=== PATIENT | female | born 1955 | race Caucasian/White ===

== ENCOUNTER → 2016-07-05 | Outpatient (CLI) | payer MEDICAID ==
[2016-07-05 09:26] LABS: Basophils % (A) 1 %; CH 30.3; CHCM 32.7; Eosinophils # (A) 0.1 k/uL (0-0.7); Eosinophils % (A) 2 %; HCT 43.8 % (34.0-46.0); HDW 2.63; HGB 14.1 gm/dL (11.4-16.0); Luc # (Auto) 0.09; Luc % (Auto) 2; Lymphocytes # (A) 1.3 k/uL (1.0-4.8); Lymphocytes % (A) 25 %; MCHC 32.2 g/dL (31.0-37.0); MCV 93.3 fL (80.0-100.0); Mean Platelet Volume 8.5; Monocytes # (A) 0.4 k/uL (0-1.0); Monocytes % (A) 7 %; Neutrophils # (A) 3.2 k/uL (1.3-7.7); Neutrophils % (A) 64 %; RBC 4.69 m/uL (3.80-5.40); RDW 12.9 % (11.5-15.5); WBC 5.1 k/uL (3.8-10.6); WBC (Perox) 4.86
[2016-07-05 12:17] LABS: ALT 42 U/L (9-52); AST 28 U/L (14-36); Alkaline Phosphatase 61 U/L (38-126); Anion Gap 12 mmol/L; Blood Urea Nitrogen 15 mg/dL (7-17); Calcium 9.5 mg/dL (8.4-10.2); Carbon Dioxide 27 mmol/L (22-30); Chloride 102 mmol/L (98-107); Cholesterol 225 mg/dL (<200); Glucose 102 mg/dL (74-99); HDL Cholesterol 70 mg/dL (40-60); Non-African American GFR(MDRD) >60 (>60 ml/min/1.73 sqM); Potassium 4.4 mmol/L (3.5-5.1); Sodium 141 mmol/L (137-145); Total Bilirubin 0.9 mg/dL (0.2-1.3); Total Protein 7.9 g/dL (6.3-8.2); Triglycerides 74 mg/dL (<150)
[2016-07-05 13:09] LABS: Hepatitis C Virus IgG Index 0.03
[2016-07-05 13:23] LABS: Hepatitis C Virus IgG Ab Negative (Negative)
== END | disposition home or self-care (01) ==
LOC: LABWHC1 06:39
PROVIDERS: ATTEND Family Medicine
DX: E03.9 Hypothyroidism, unspecified (principal); E78.5 Hyperlipidemia, unspecified; E83.52 Hypercalcemia; Z20.9 Contact with and (suspected) exposure to unspecified communicable disease
CPT/HCPCS: 36415; 80053; 80061; 82330; 83970; 84439; 84443; 84481; 85025; 86803

== ENCOUNTER → 2016-07-13 | Outpatient (CLI) | payer MEDICAID ==
--- NOTE | 2016-07-14 10:59 | BD ---
EXAMINATION TYPE: MG DEXA axial skeleton. DATE OF EXAM: 07/13/2016 3:56 PM COMPARISON: 08.26.2014 CLINICAL HISTORY: Z78.0 ASYMPTOMATIC MENOPAUSAL STATE Height: 62 Weight: 200 FRAX RISK QUESTIONS: Alcohol (3 or more units per day): NO Family History (Parent hip fracture): NO Glucocorticoids (More than 3mos): YES (Ex: prednisone, prednisolone, methylprednisolone, dexamethasone, and hydrocortisone). History of Fracture in Adulthood: NO Secondary Osteoporosis: 1. Type 1 Diabetes: NO 2. Hyperthyroidism: NO 3. Menopause before 45: NO 4. Malnutrition: NO 5. Chronic liver disease: NO Rheumatoid Arthritis: NO Current Tobacco Use: NO RISK FACTORS HISTORY OF: Surgery to Spine TO CERVICAL SPINE, FUSION When: 2000 Family History of Osteoporosis: NO Drink Alcohol: RARE Active: YES Diet low in dairy products/other sources of calcium: NO Postmenopausal woman: YES AT 48 YRS OLD Adrenal Insufficiency: NO MEDICATIONS: Prednisone or other steroids: ASTHMA INHALERS, How Long: FOR YRS Thyroid Medications: YES, SYNTHROID How Lon YRS Additional Medications: CORTICO STEROID INHALER AND RESCUE INHALER, VIT D, Additional History: ASTHMA, EXAM MEASUREMENTS: Bone mineral densitometry was performed using the [employer] System. Bone mineral density as measured about the Lumbar spine is: ----- L1-L4(G/cm2): 1.495 T Score Values are as follows: ----- L1: 2.4 ----- L2: 2.0 ----- L3: 2.8 ----- L4: 3.1 ----- L1-L4: 2.6 Bone mineral density has: Increased 3.7% since study of: 08.26.2014 Bone mineral density about the R hip (g/cm2): 1.134 Bone mineral density about the L hip (g/cm2): 1.166 T Score values are as follows: -----R Neck: -0.2 -----L Neck: 0.2 -----R Intertrochanter: 0.3 -----L Intertrochanter: 0.6 Bone mineral density has: Increased 1.3% since study of: 08.26.2014 FRAX %'S: 5.9% FOR MAJOR OSTEOPOROTIC FX AND 0.2% FOR HIP FX: PROBABILITY OF FX IN 10 YRS TI ME IMPRESSION: Normal (Values between +1 and -1 indicate normal bone mass FOR BOTH SCANS....BOTH HIPS AND LUMBAR SPINE) NOTE: T-SCORE=SD OF THE YOUNG ADULT MEAN.
--- NOTE | 2016-07-17 09:11 | MM ---
Reason for exam: screening (asymptomatic). Last mammogram was performed 1 year and 11 months ago. History: Patient is postmenopausal. Family history of breast cancer in aunt. Benign stereotactic core biopsy of the right breast, September 16, 2001. Excisional biopsy of the left breast, 2000. Cyst aspiration of the right breast, 1999. Physical Findings: A clinical breast exam by your physician is recommended on an annual basis and results should be correlated with mammographic findings. MG 3D Screening Mammo W/Cad Bilateral CC and MLO view(s) were taken. Prior study comparison: August 26, 2014, bilateral MG screening mammo w CAD. May 24, 2012, bilateral digital screening mammo w/CAD. There are scattered fibroglandular densities. Finding: There are typically benign coarse calcifications in the right breast. Previous mammotome biopsy in the right breast. There is a chronic nodularity in the left breast. No significant changes in finding since August 26, 2014 and May 24, 2012. ASSESSMENT: Benign, BI-RAD 2 RECOMMENDATION: Routine screening mammogram of both breasts in 1 year.
== END ==
LOC: RADMAMWWP 15:16
PROVIDERS: ATTEND Family Medicine
DX: Z12.31 Encounter for screening mammogram for malignant neoplasm of breast (principal); Z78.0 Asymptomatic menopausal state
CPT/HCPCS: 77080; 77063; G0202

== ENCOUNTER → 2016-09-14 | Outpatient (CLI) | payer MEDICAID | END | disposition home or self-care (01) | LOC: LABWHC1 06:42 | PROVIDERS: ATTEND Family Medicine | DX: E03.9 Hypothyroidism, unspecified (principal) | CPT/HCPCS: 36415; 84439; 84443; 84481 ==

== ENCOUNTER → 2017-01-29 | Outpatient (CLI) | payer MEDICAID ==
--- NOTE | 2017-01-29 11:29 | XR ---
EXAMINATION TYPE: XR chest 2V DATE OF EXAM: 01/29/2017 COMPARISON: 10/06/2015 HISTORY: 61-year-old female shortness of breath, acute bronchitis TECHNIQUE: Frontal and lateral views FINDINGS: The cardiomediastinal silhouette, aorta, and pulmonary vasculature are within normal limits. Strandy atelectasis in the lower lungs. Otherwise, lungs and pleural spaces are clear. IMPRESSION: No acute cardiopulmonary process.
== END ==
LOC: RADXRMAIN 10:13
PROVIDERS: ATTEND Family Medicine
DX: J20.9 Acute bronchitis, unspecified (principal)
CPT/HCPCS: 71020

== ENCOUNTER → 2017-07-30 | Outpatient (CLI) | payer MEDICAID ==
[2017-07-30 07:39] LABS: Basophils % (A) 1 %; Eosinophils # (A) 0.1 k/uL (0-0.7); Eosinophils % (A) 2 %; HCT 43.4 % (34.0-46.0); HGB 13.9 gm/dL (11.4-16.0); Lymphocytes # (A) 1.6 k/uL (1.0-4.8); Lymphocytes % (A) 34 %; MCH 29.1 pg (25.0-35.0); MCV 90.9 fL (80.0-100.0); Mean Platelet Volume 7.5; Monocytes # (A) 0.3 k/uL (0-1.0); Monocytes % (A) 6 %; Neutrophils # (A) 2.6 k/uL (1.3-7.7); Neutrophils % (A) 56 %; Platelet Count 235 k/uL (150-450); RBC 4.78 m/uL (3.80-5.40); RDW 12.5 % (11.5-15.5); WBC 4.7 k/uL (3.8-10.6)
[2017-07-30 09:54] LABS: ALT 37 U/L (9-52); AST 33 U/L (14-36); Albumin 4.4 g/dL (3.5-5.0); Alkaline Phosphatase 55 U/L (38-126); Anion Gap 9 mmol/L; Blood Urea Nitrogen 14 mg/dL (7-17); Calcium 9.7 mg/dL (8.4-10.2); Carbon Dioxide 29 mmol/L (22-30); Chloride 104 mmol/L (98-107); Cholesterol 207 mg/dL (<200); Glucose 106 mg/dL (74-99); HDL Cholesterol 61 mg/dL (40-60); LDL Cholesterol,Calculated 131 mg/dL (0-99); Potassium 4.2 mmol/L (3.5-5.1); Sodium 142 mmol/L (137-145); Total Bilirubin 0.7 mg/dL (0.2-1.3); Total Protein 7.6 g/dL (6.3-8.2); Triglycerides 76 mg/dL (<150)
[2017-07-30 10:09] LABS: T4, Free (Free Thyroxine) 1.82 ng/dL (0.78-2.19)
== END | disposition home or self-care (01) ==
LOC: LABWHC1 06:56
PROVIDERS: ATTEND Family Medicine
DX: E03.9 Hypothyroidism, unspecified (principal)
CPT/HCPCS: 36415; 80053; 80061; 84439; 84443; 84481; 85025

== ENCOUNTER → 2017-08-07 | Outpatient (CLI) | payer MEDICAID ==
[2017-08-07 08:07] VITALS: BP 131/73; PULSE 81; TEMP 97.2; BMI 33.1
--- NOTE | 2017-08-07 08:41 | P.HPOB ---
History of Present Illness H&P Date: 08/07/17 Chief Complaint: The patient is here for her routine gynecologic exam and mammogram. This is a 62-year-old with an LMP of 2002. The patient is without gynecologic complaints and denies any postmenopausal bleeding. The patient states is been about 2 years since her last pelvic exam. Review of Systems The patient states she has lost about 25 pounds over the last year with diet and exercise. She denies respiratory, cardiac, and G.I. problems. Past Medical History Past Medical History: Asthma, COPD, Thyroid Disorder (Hypothyroid) Additional Past Medical History / Comment(s): sully 08/07/17, bone density 2016, colonoscopy 2014 History of Any Multi-Drug Resistant Organisms: None Reported Additional Past Surgical History / Comment(s): Tonsillectomy age 58, breast biopsy 2004, exploratory laprarotomy with ovarian cystectomy and appendectomy 1971, D&C x3 1969, colonoscopy 2014 (3rd). 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 - Past Family History Father Family Medical History: Cancer (Bowel cancer.) Mother Family Medical History: Dementia Additional Family Medical History / Comment(s): Maternal aunt had breast cancer. Medications and Allergies Home Medications and Allergies Comment(s): Additional medications include Advair inhaler b.i.d. Ventolin inhaler PRN. Home Medications Medication Instructions Recorded Confirmed Type Levothyroxine Sodium [Synthroid] 125 mcg PO DAILY 04/27/15 04/28/15 History Meclizine [Antivert] 25 mg PO DIRECTED PRN 04/27/15 04/28/15 History Allergies Allergy/AdvReac Type Severity Reaction Status Date / Time erythromycin base Allergy Nausea & Verified 08/07/17 08:11 Vomiting Penicillins Allergy Swelling Verified 08/07/17 08:11 Exam - Vital Signs Vital signs: Vital Signs Temp Pulse BP 08/07/17 08:04 97.2 F L 81 131/73 Intake and Output 08/06/17 08/07/17 08/07/17 22:59 06:59 14:59 Other: Weight 84.822 kg Height 5'3" BMI 33.1. This is a well-developed well-nourished white female who is alert and oriented times 3 in no acute distress. HEENT: Within normal limits. NECK: Supple without mass or thyromegaly. CHEST AND LUNGS: Clear to auscultation. HEART: Regular rate and rhythm. BREASTS: Are without mass or discharge. AXILLARY EXAM: Negative for adenopathy. BACK: Negative for CVA tenderness. ABDOMEN: Soft, nontender, without palpable masses. PELVIC EXAM: Normal external genitalia with mild atrophy. Cervix and vagina appear normal with mild atrophy. There is no unusual discharge. There is no evidence of prolapse. The uterus is midposition, nongravid size and nontender. There are no palpable adnexal masses or tenderness. RECTAL EXAM: rectovaginal exam is negative for mass or tenderness and is negative for occult blood. EXTREMITIES: Nontender. IMPRESSION: 1. 62-year-old menopausal female with normal gynecologic exam. PLAN: 1. Pap smear was performed. 2. Self breast examination was discussed. 3. Screening mammogram will be done today. 4. Bone density testing on 07/13/16 was normal. Will plan on repeating this in approximately 2023. 5. Osteoporosis prevention was discussed. 6. She will return in one year.
--- NOTE | 2017-08-08 08:34 | MM ---
Reason for exam: screening (asymptomatic). Last mammogram was performed 1 year and 1 month ago. History: Patient is postmenopausal. Family history of breast cancer in aunt. Benign stereotactic core biopsy of the right breast, September 16, 2001. Excisional biopsy of the left breast, 2000. Cyst aspiration of the right breast, 1999. Physical Findings: A clinical breast exam by your physician is recommended on an annual basis and results should be correlated with mammographic findings. MG 3D Screening Mammo W/Cad Bilateral CC and MLO view(s) were taken. Prior study comparison: July 13, 2016, bilateral MG 3d screening mammo w/cad. August 26, 2014, bilateral MG screening mammo w CAD. The breast tissue is heterogeneously dense. This may lower the sensitivity of mammography. Stable benign calcifications. There is chronic nodularity bilaterally. There is no dominant lesion. No significant changes when compared with prior studies. ASSESSMENT: Benign, BI-RAD 2 RECOMMENDATION: Routine screening mammogram of both breasts in 1 year.
== END | disposition home or self-care (01) ==
LOC: WWCWWP 07:39
PROVIDERS: ATTEND Obstetrics & Gynecology
DX: Z12.31 Encounter for screening mammogram for malignant neoplasm of breast (principal)
CPT/HCPCS: 77063; 77067

== ENCOUNTER → 2018-02-08 | Outpatient (CLI) | payer MEDICAID ==
[2018-02-08 07:27] LABS: Basophils % (A) 1 %; Eosinophils # (A) 0.1 k/uL (0-0.7); Eosinophils % (A) 2 %; HCT 44.6 % (34.0-46.0); HGB 14.5 gm/dL (11.4-16.0); Lymphocytes # (A) 1.6 k/uL (1.0-4.8); Lymphocytes % (A) 33 %; MCH 30.1 pg (25.0-35.0); MCHC 32.5 g/dL (31.0-37.0); MCV 92.5 fL (80.0-100.0); Mean Platelet Volume 6.9; Monocytes # (A) 0.3 k/uL (0-1.0); Monocytes % (A) 5 %; Neutrophils # (A) 2.8 k/uL (1.3-7.7); Neutrophils % (A) 58 %; Platelet Count 244 k/uL (150-450); RBC 4.82 m/uL (3.80-5.40); RDW 12.5 % (11.5-15.5); WBC 4.8 k/uL (3.8-10.6)
[2018-02-08 10:04] LABS: ALT 34 U/L (9-52); AST 33 U/L (14-36); Albumin 4.6 g/dL (3.5-5.0); Alkaline Phosphatase 54 U/L (38-126); Anion Gap 7 mmol/L; Blood Urea Nitrogen 17 mg/dL (7-17); Calcium 9.6 mg/dL (8.4-10.2); Carbon Dioxide 28 mmol/L (22-30); Chloride 104 mmol/L (98-107); Cholesterol 217 mg/dL (<200); Glucose 99 mg/dL (74-99); HDL Cholesterol 68 mg/dL (40-60); LDL Cholesterol,Calculated 134 mg/dL (0-99); Potassium 4.6 mmol/L (3.5-5.1); Sodium 139 mmol/L (137-145); Total Bilirubin 0.8 mg/dL (0.2-1.3); Total Protein 7.9 g/dL (6.3-8.2); Triglycerides 76 mg/dL (<150)
[2018-02-08 10:19] LABS: T4, Free (Free Thyroxine) 1.45 ng/dL (0.78-2.19)
[2018-02-08 15:08] LABS: Hemoglobin A1C 5.6 % (4.0-6.0)
== END ==
LOC: LABWHC1 06:45
PROVIDERS: ATTEND Family Medicine
DX: E03.9 Hypothyroidism, unspecified (principal); E78.5 Hyperlipidemia, unspecified; R73.9 Hyperglycemia, unspecified
CPT/HCPCS: 36415; 80053; 80061; 83036; 84439; 84443; 84481; 85025

== ENCOUNTER → 2018-07-11 | Outpatient (CLI) | payer MEDICAID | END | disposition home or self-care (01) | LOC: LABWHC1 06:56 | PROVIDERS: ATTEND Orthopaedic Surgery Orthopaedic Surgery of the Spine | DX: M50.121 Cervical disc disorder at C4-C5 level with radiculopathy (principal); R20.2 Paresthesia of skin; E66.9 Obesity, unspecified; M50.021 Cervical disc disorder at C4-C5 level with myelopathy; Z98.1 Arthrodesis status; R26.81 Unsteadiness on feet; M25.78 Osteophyte, vertebrae | CPT/HCPCS: 36415; 82565; 84520 ==

== ENCOUNTER → 2018-07-12 | Outpatient (CLI) | payer MEDICAID ==
--- NOTE | 2018-07-12 17:35 | MR ---
EXAMINATION TYPE: MR cervical spine wo/w con DATE OF EXAM: 07/12/2018 COMPARISON: None HISTORY: Cervicalgia / Radiculopathy, cervical CONTRAST: Performed utilizing 5.5 mL intravenous Gadavist gadolinium contrast. TECHNIQUE: Multiplanar multiecho imaging on a 3.0 Aleida magnet is performed through the cervical spin e. FINDINGS: The craniovertebral junction is normal. Vertebral body alignment is normal. There is an anterior cervical fusion present C5-6. C7-T1: No focal disc herniation or significant disc bulge is evident. No spinal canal stenosis or n eural foraminal stenosis is present. C6-7: No focal disc herniation or significant disc bulge is evident. No spinal canal stenosis or delaney ral foraminal stenosis is present. C5-6: No focal disc herniation or significant disc bulge is evident. No spinal canal stenosis or delaney ral foraminal stenosis is present. C4-5: No focal disc herniation or significant disc bulge is evident. No spinal canal stenosis or delaney ral foraminal stenosis is present. C3-4: There is a right paracentral focal bulge with moderate anterior thecal sac compression. This valentin s cord contact. No cord deformity is evident. No spinal canal stenosis or neural foraminal stenosis i s present.. C2-3: No focal disc herniation or significant disc bulge is evident. No spinal canal stenosis or delaney ral foraminal stenosis is present. IMPRESSIONS: 1. Right paracentral focal disc bulge with moderate anterior thecal sac compression and cord contact C3-4 level. No cord deformity or spinal canal stenosis is present. 2. Postsurgical changes from anterior cervical fusion.
== END | disposition home or self-care (01) ==
LOC: RADMRIMAIN 12:14
PROVIDERS: ATTEND Orthopaedic Surgery Orthopaedic Surgery of the Spine
DX: M50.11 Cervical disc disorder with radiculopathy, high cervical region (principal); M50.01 Cervical disc disorder with myelopathy, high cervical region; G95.29 Other cord compression; E66.9 Obesity, unspecified; Z98.1 Arthrodesis status
CPT/HCPCS: 72156; A9585

== ENCOUNTER → 2018-08-19 | Outpatient (CLI) | payer MEDICAID ==
[2018-08-19 08:23] LABS: Basophils % (A) 1 %; Eosinophils # (A) 0.1 k/uL (0-0.7); Eosinophils % (A) 2 %; HCT 43.5 % (34.0-46.0); HGB 13.9 gm/dL (11.4-16.0); Lymphocytes # (A) 1.7 k/uL (1.0-4.8); Lymphocytes % (A) 29 %; MCH 29.2 pg (25.0-35.0); MCHC 32.1 g/dL (31.0-37.0); Mean Platelet Volume 7.2; Monocytes # (A) 0.3 k/uL (0-1.0); Monocytes % (A) 6 %; Neutrophils # (A) 3.6 k/uL (1.3-7.7); Neutrophils % (A) 60 %; Platelet Count 233 k/uL (150-450); RBC 4.78 m/uL (3.80-5.40); RDW 12.9 % (11.5-15.5)
[2018-08-19 16:34] LABS: Albumin 4.5 g/dL (3.80-4.90); Albumin/Globulin Ratio 1.88 (1.60-3.17); Anion Gap 5.6 mmol/L (4.00-12.00); Calcium 9.3 mg/dL (8.7-10.3); Carbon Dioxide 29.4 mmol/L (21.6-31.8); Globulin 2.4 g/dL (1.6-3.3); LDL Cholesterol,Calculated 131.8 mg/dL (0.0-131.0); Potassium 4.5 mmol/L (3.5-5.5); Total Bilirubin 0.6 mg/dL (0.3-1.2); Total Protein 6.9 g/dL (6.2-8.2); VLDL Calculation 23.2 mg/dL (5.00-40.00)
[2018-08-19 16:41] LABS: T4, Free (Free Thyroxine) 1.5 ng/dL (0.80-1.80)
== END ==
LOC: LABWHC1 07:11
PROVIDERS: ATTEND Family Medicine
DX: E03.9 Hypothyroidism, unspecified (principal); E78.5 Hyperlipidemia, unspecified
CPT/HCPCS: 36415; 80053; 80061; 84439; 84443; 84481; 85025

== ENCOUNTER → 2018-11-19 | Outpatient (CLI) | payer MEDICAID ==
[2018-11-19 14:12] VITALS: BP 120/81; PULSE 92; RESP 16; TEMP 98.8; BMI 37.0
--- NOTE | 2018-11-19 14:40 | P.HPOB ---
History of Present Illness H&P Date: 11/19/18 Chief Complaint: The patient is here for her routine gynecologic exam and ma mmogram. This is a 63-year-old with an LMP of 2002. The patient is without gynecologic complaints. She denies any postmenopausal bleeding. Review of Systems The patient has gained 20 pounds over the last year. She denies respiratory, cardiac, or G.I. problems. Past Medical History Past Medical History: Asthma, COPD, Thyroid Disorder Additional Past Medical History / Comment(s): Hypothyroidism. 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 History of Any Multi-Drug Resistant Organisms: None Reported Past Surgical History: Appendectomy, Breast Surgery, Tonsillectomy Additional Past Surgical History / Comment(s): Tonsillectomy age 58, breast biopsy 2004, exploratory laprarotomy with ovarian cystectomy and appendectomy 1971, D&C x3 1969, colonoscopy 2015 (3rd). Past Psychological History: No Psychological Hx Reported Smoking Status: Former smoker Past Alcohol Use History: Occasional (2 to 4 per month) Past Drug Use History: None Reported Additional History: Quit smoking in 1997. 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 - Past Family History Father Family Medical History: Cancer Additional Family Medical History / Comment(s): Bowel cancer. Mother Family Medical History: Dementia Additional Family Medical History / Comment(s): Maternal aunt had breast cancer. Medications and Allergies Home Medications Medication Instructions Recorded Confirmed Type Levothyroxine Sodium [Synthroid] 112 mcg PO DAILY 04/27/15 11/19/18 History Albuterol Inhaler [Ventolin Hfa 1 - 2 inhaler PO ONCE PRN 08/07/17 11/19/18 History Inhaler] Fluticasone/Salmeterol [Advair Hfa 1 puff INHALATION BID 08/07/17 11/19/18 History 115-21 Mcg Inhaler] Multivitamins, Thera [Multivitamin 1 tab PO DAILY 08/07/17 11/19/18 History (formulary)] Allergies Allergy/AdvReac Type Severity Reaction Status Date / Time erythromycin base Allergy Nausea & Verified 11/19/18 14:12 Vomiting Penicillins Allergy Swelling Verified 11/19/18 14:12 Exam Vital Signs Temp Pulse Resp BP Pulse Ox 11/19/18 14:07 98.8 F 92 16 120/81 92 L Intake and Output 11/18/18 11/19/18 11/19/18 22:59 06:59 14:59 Other: Weight 94.801 kg Height 5'3", weight 209 pounds, BMI 37.0. This is a well-developed well-nourished white female who is alert and oriented times 3 in no acute distress. HEENT: Within normal limits. NECK: Supple without mass or thyromegaly. CHEST AND LUNGS: Clear to auscultation. HEART: Regular rate and rhythm. BREASTS: Are without mass or discharge. AXILLARY EXAM: Negative for adenopathy. BACK: Negative for CVA tenderness. ABDOMEN: Soft, nontender, without palpable masses. PELVIC EXAM: Normal external genitalia with mild atrophy. Cervix and vagina appear normal smiled atrophy. There is no unusual discharge. There is no evidence of prolapse. The uterus is midposition, nongravid size and nontender. There are no palpable adnexal masses or tenderness. RECTAL EXAM: rectovaginal exam is negative for mass or tenderness and is negative for occult blood. EXTREMITIES: Nontender. IMPRESSION: 1. 63-year-old menopausal female with normal gynecologic exam. PLAN: 1. Pap smear was deferred since she had a normal one of 08/07/2017. 2. Self breast awareness was discussed with the patient. 3. Screening mammogram will be done today. 4. Osteoporosis prevention was discussed. I have stressed the importance of adequate calcium, vitamin D and regular exercise. Recommended amounts of calcium and vitamin D were also discussed. She had a normal bone density test done on . This will be repeated after about 6 years. 5. She was advised to return in one year for her annual well woman exam.
--- NOTE | 2018-11-20 11:29 | MM ---
Reason for exam: screening (asymptomatic). Last mammogram was performed 1 year and 3 months ago. History: Patient is postmenopausal. Family history of breast cancer in aunt. Benign stereotactic core biopsy of the right breast, September 16, 2001. Excisional biopsy of the left breast, 2000. Cyst aspiration of the right breast, 1999. Physical Findings: A clinical breast exam by your physician is recommended on an annual basis and results should be correlated with mammographic findings. MG 3D Screening Mammo W/Cad Bilateral CC, MLO, and XCCL view(s) were taken. Prior study comparison: August 07, 2017, bilateral MG 3d screening mammo w/cad. July 13, 2016, bilateral MG 3d screening mammo w/cad. There are scattered fibroglandular densities. There are benign appearing round calcifications bilaterally. Previous mammotome biopsy in the right breast. There is no discrete abnormality. ASSESSMENT: Benign, BI-RAD 2 RECOMMENDATION: Routine screening mammogram of both breasts in 1 year.
== END ==
LOC: WWCWWP 13:44
PROVIDERS: ATTEND Obstetrics & Gynecology
DX: Z12.31 Encounter for screening mammogram for malignant neoplasm of breast (principal)
CPT/HCPCS: 77063; 77067

== ENCOUNTER → 2018-12-30 | Outpatient (CLI) | payer MEDICAID ==
--- NOTE | 2018-12-30 08:10 | XR ---
EXAMINATION TYPE: XR chest 2V DATE OF EXAM: 12/30/2018 COMPARISON: 01/29/2017 HISTORY: 63-year-old female with orthopnea, COPD TECHNIQUE: PA and lateral views FINDINGS: Heart normal size. Mild interstitial prominence has a chronic appearance. No maria consolidation or p leural effusion. IMPRESSION: No maria CHF or cardiomegaly.
[2018-12-30 11:53] LABS: Hemoglobin A1C 5.6 % (4.0-6.0)
[2018-12-30 12:16] LABS: HIV 1 AB Non-Reactive (Non-Reactive); HIV 2 AB Non-Reactive (Non-Reactive); HIV AB P24 Non-Reactive (Non-Reactive); HIV P24 AG Non-Reactive (Non-Reactive)
[2018-12-30 13:53] LABS: African American GFR (CKD) 90.9 (60.0-200.0); Albumin 4.4 g/dL (3.80-4.90); Albumin/Globulin Ratio 1.91 (1.60-3.17); Anion Gap 9.4 mmol/L (4.00-12.00); BUN/Creat Ratio 18.75 Ratio (12.00-20.00); Calcium 8.9 mg/dL (8.7-10.3); Carbon Dioxide 24.6 mmol/L (21.6-31.8); Chol/HDL Ratio 3.06; Globulin 2.3 g/dL (1.6-3.3); LDL Cholesterol,Calculated 108.2 mg/dL (0.0-131.0); Non-African American GFR(CKD) 78.5 (60.0-200.0); Potassium 4.5 mmol/L (3.5-5.5); Total Bilirubin 0.7 mg/dL (0.2-1.2); Total Protein 6.7 g/dL (6.2-8.2); VLDL Calculation 21.8 mg/dL (5.00-40.00)
[2018-12-30 14:00] LABS: T4, Free (Free Thyroxine) 1.6 ng/dL (0.80-1.80)
[2018-12-30 14:09] LABS: Hepatitis B Surface Antigen Non-Reactive (Non-Reactive); Hepatitis C IgG Antibody Non-Reactive (Non-Reactive)
== END | disposition home or self-care (01) ==
LOC: LABWHC1 06:44
PROVIDERS: ATTEND Family Medicine
DX: R06.01 Orthopnea (principal); E03.9 Hypothyroidism, unspecified; Z13.1 Encounter for screening for diabetes mellitus; Z13.220 Encounter for screening for lipoid disorders; Z11.9 Encounter for screening for infectious and parasitic diseases, unspecified
CPT/HCPCS: 36415; 71046; 80053; 80061; 83036; 84439; 84443; 84481; 86803; 87340; 87390

== ENCOUNTER → 2019-02-03 | Outpatient (CLI) | payer MEDICAID ==
--- NOTE | 2019-02-04 10:29 | ECHOF ---
Referral Reason:R06.01 Orthopnea MEASUREMENTS -------- HEIGHT: 157.5 cm WEIGHT: 94.3 kg BP: RVIDd: 3.9 cm (< 3.3) IVSd: 0.9 cm (0.6 - 1.1) LVIDd: 4.2 cm (3.9 - 5.3) LVPWd: 1.1 cm (0.6 - 1.1) IVSs: 1.2 cm LVIDs: 2.6 cm LVPWs: 1.6 cm LA Diam: 3.0 cm (2.7 - 3.8) LAESV Index (A-L): 16.77 ml/m Ao Diam: 2.2 cm (2.0 - 3.7) LA Diam: 3.7 cm (2.7 - 3.8) MV EXCURSION: 24.295 mm (> 18.000) MV EF SLOPE: 111 mm/s (70 - 150) EPSS: 0.3 cm MV E Rc: 0.68 m/s MV DecT: 251 ms MV A Rc: 0.99 m/s MV E/A Ratio: 0.69 RAP: 5.00 mmHg RVSP: 33.09 mmHg FINDINGS -------- Sinus rhythm. This was a technically adequate study. The left ventricular size is normal. Left ventricular wall thickness is normal. Overall left vent ricular systolic function is normal with, an EF between 55 - 60 %. The diastolic filling pattern is normal for the age of the patient 6.45. The right ventricle is normal in size. Normal LA size by volume 22+/-6 ml/m2. The right atrial size is normal. The aortic valve was not well visualized. The mitral valve is normal. Mild mitral regurgitation is present. Mild tricuspid regurgitation present. Right ventricular systolic pressure is normal at < 35 mmHg. There is no evidence of pulmonary hypertension. The pulmonic valve was not well visualized. There is no pulmonic regurgitation present. The aortic root size is normal. There is no pericardial effusion. CONCLUSIONS -------- 1. Sinus rhythm. 2. This was a technically adequate study. 3. The left ventricular size is normal. 4. Left ventricular wall thickness is normal. 5. Overall left ventricular systolic function is normal with, an EF between 55 - 60 %. 6. The diastolic filling pattern is normal for the age of the patient 6.45 7. Normal LA size by volume 22+/-6 ml/m2. 8. The aortic valve was not well visualized. 9. Mild mitral regurgitation is present. 10. Mild tricuspid regurgitation present. 11. Right ventricular systolic pressure is normal at < 35 mmHg. 12. The pulmonic valve was not well visualized. 13. The aortic root size is normal. 14. There is no pericardial effusion. FORENSIC TECHNICIAN: Lina Osman RDCS
== END | disposition home or self-care (01) ==
LOC: RADECHMAIN 16:16
PROVIDERS: ATTEND Family Medicine
DX: I08.1 Rheumatic disorders of both mitral and tricuspid valves (principal)
CPT/HCPCS: 93306

== ENCOUNTER → 2019-12-09 | Outpatient (CLI) | payer MEDICAID ==
[2019-12-09 07:52] LABS: Basophils % (A) 0 %; Eosinophils # (A) 0.1 k/uL (0-0.7); Eosinophils % (A) 2 %; HCT 41.6 % (34.0-46.0); HGB 14.1 gm/dL (11.4-16.0); Lymphocytes # (A) 1.8 k/uL (1.0-4.8); Lymphocytes % (A) 33 %; MCH 31.3 pg (25.0-35.0); Mean Platelet Volume 7.8; Monocytes # (A) 0.4 k/uL (0-1.0); Monocytes % (A) 8 %; Neutrophils # (A) 3.1 k/uL (1.3-7.7); Neutrophils % (A) 55 %; Platelet Count 226 k/uL (150-450); RBC 4.52 m/uL (3.80-5.40); RDW 12.4 % (11.5-15.5); WBC 5.6 k/uL (3.8-10.6)
[2019-12-09 14:36] LABS: T4, Free (Free Thyroxine) 1.4 ng/dL (0.80-1.80)
[2019-12-09 14:46] LABS: African American GFR (CKD) 90.3 (60.0-200.0); Albumin 4.1 g/dL (3.80-4.90); Albumin/Globulin Ratio 1.78 (1.60-3.17); Anion Gap 7.8 mmol/L (4.00-12.00); BUN/Creat Ratio 16.25 Ratio (12.00-20.00); Calcium 9.1 mg/dL (8.7-10.3); Carbon Dioxide 27.2 mmol/L (21.6-31.8); Chol/HDL Ratio 3.69; Globulin 2.3 g/dL (1.6-3.3); Non-African American GFR(CKD) 77.9 (60.0-200.0); Potassium 3.9 mmol/L (3.5-5.5); Total Bilirubin 0.8 mg/dL (0.3-1.2); Total Protein 6.4 g/dL (6.2-8.2)
== END | disposition home or self-care (01) ==
LOC: LABWHC1 07:16
PROVIDERS: ATTEND Family Medicine
DX: E03.9 Hypothyroidism, unspecified (principal)
CPT/HCPCS: 36415; 80053; 80061; 84439; 84443; 85025

== ENCOUNTER → 2020-02-03 | Outpatient (CLI) | payer MEDICAID ==
[2020-02-03 09:31] VITALS: BP 128/82; PULSE 77; RESP 18
--- NOTE | 2020-02-03 10:00 | P.HPOB ---
History of Present Illness H&P Date: 02/03/20 Chief Complaint: The patient is here for her routine gynecologic exam and ma mmogram. This is a 64-year-old with an LMP of 2002. The patient is without gynecologic complaints and denies any postmenopausal bleeding. Review of Systems The patient has lost 4 pounds over the last year. She denies respiratory, cardiac, or G.I. problems. Past Medical History Past Medical History: Asthma, COPD, Hyperlipidemia, Thyroid Disorder Additional Past Medical History / Comment(s): Hypothyroidism. Leg edema. 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 History of Any Multi-Drug Resistant Organisms: None Reported Past Surgical History: Appendectomy, Breast Surgery, Tonsillectomy Additional Past Surgical History / Comment(s): Tonsillectomy age 58, breast biopsy 2004, exploratory laprarotomy with ovarian cystectomy and appendectomy 1971, D&C x3 1969, colonoscopy 2014 (next aftr 5yr). Past Psychological History: No Psychological Hx Reported Smoking Status: Former smoker Past Alcohol Use History: Occasional Additional Past Alcohol Use History / Comment(s): Quit smoking in 1997. 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 - Past Family History Father Family Medical History: Cancer Additional Family Medical History / Comment(s): Bowel cancer. Mother Family Medical History: Dementia Additional Family Medical History / Comment(s): Maternal aunt had breast cancer. Medications and Allergies Home Medications Medication Instructions Recorded Confirmed Type Levothyroxine Sodium [Synthroid] 112 mcg PO DAILY 04/27/15 02/03/20 History Albuterol Inhaler (Mhu) [Ventolin 1 - 2 inhaler PO ONCE PRN 08/07/17 02/03/20 History Hfa Inhaler] Fluticasone/Salmeterol [Advair Hfa 1 puff INHALATION BID 08/07/17 02/03/20 History 115-21 Mcg Inhaler] Multivitamins, Thera [Multivitamin 1 tab PO DAILY 08/07/17 02/03/20 History (formulary)] Atorvastatin [Lipitor] 10 mg PO DAILY 02/03/20 02/03/20 History Cholecalciferol [Vitamin D3 (25 5,000 unit PO DAILY 02/03/20 02/03/20 History Mcg = 1000 Iu)] Furosemide [Lasix] 20 mg PO DAILY 02/03/20 02/03/20 History Loratadine [Claritin] 10 mg PO DAILY 02/03/20 02/03/20 History Allergies Allergy/AdvReac Type Severity Reaction Status Date / Time erythromycin base Allergy Nausea & Verified 02/03/20 09:24 Vomiting Penicillins Allergy Swelling Verified 02/03/20 09:24 Exam Vital Signs Pulse Resp BP Pulse Ox 02/03/20 09:26 77 18 128/82 98 Intake and Output 02/02/20 02/03/20 02/03/20 22:59 06:59 14:59 Other: Weight 92.986 kg Height 5 feet 2-1/2 inches, weight 205 pounds, BMI 36.9. This is a well-developed well-nourished white female who is alert and oriented times 3 in no acute distress. HEENT: Within normal limits. NECK: Supple without mass or thyromegaly. CHEST AND LUNGS: Clear to auscultation. HEART: Regular rate and rhythm. BREASTS: Are without mass or discharge. AXILLARY EXAM: Negative for adenopathy. BACK: Negative for CVA tenderness. ABDOMEN: Soft, nontender, without palpable masses. PELVIC EXAM: Normal external genitalia with mild atrophy. Cervix and vagina appear normal with mild atrophy. There is no unusual discharge. There is no evidence of prolapse. The uterus is midposition, nongravid size and nontender. There are no palpable adnexal masses or tenderness. RECTAL EXAM: Rectovaginal exam is negative for mass or tenderness and is ne gative for occult blood. EXTREMITIES: Nontender. IMPRESSION: 1. 64-year-old menopausal female with normal gynecologic exam. PLAN: 1. Pap smear was performed. 2. Self breast awareness was discussed with the patient. 3. Screening mammogram will be done today. 4. Osteoporosis prevention was discussed. I have stressed the importance of adequate calcium, vitamin D and regular exercise. Recommended amounts of calcium and vitamin D were also discussed. She had a normal bone density test in 2016 and we are planning to repeat this in 2022. 5. She states she is due for her colonoscopy later this year and I have suggested that she arrange this through her PCP. 6. She was advised to return in one year for her annual well woman exam.
--- NOTE | 2020-02-04 10:10 | MM ---
Reason for exam: screening (asymptomatic). Last mammogram was performed 1 year and 2 months ago. History: Patient is postmenopausal. Family history of breast cancer in aunt. Benign stereotactic core biopsy of the right breast, September 16, 2001. Excisional biopsy of the left breast, 2000. Cyst aspiration of the right breast, 1999. Physical Findings: A clinical breast exam by your physician is recommended on an annual basis and results should be correlated with mammographic findings. MG 3D Screening Mammo W/Cad Bilateral CC and MLO view(s) were taken. Prior study comparison: November 19, 2018, bilateral MG 3d screening mammo w/cad. August 07, 2017, bilateral MG 3d screening mammo w/cad. The breast tissue is heterogeneously dense. This may lower the sensitivity of mammography. Stable benign calcifications. There is no discrete abnormality. No significant changes when compared with prior studies. ASSESSMENT: Benign, BI-RAD 2 RECOMMENDATION: Routine screening mammogram of both breasts in 1 year.
== END | disposition home or self-care (01) ==
LOC: WWCWWP 09:15
PROVIDERS: ATTEND Obstetrics & Gynecology
DX: Z12.31 Encounter for screening mammogram for malignant neoplasm of breast (principal)
CPT/HCPCS: 77063; 77067

== ENCOUNTER 2020-04-29 09:29 | Day surgery (SDC) | payer MEDICAID ==
[2020-04-28 10:20] VITALS: BMI 34.2
[~2020-04-29 09:29] MED LIST: LACTATED RINGERS 1,000 ML IV SCH; LIDOCAINE 1% (10MG/ML) FOR IV START INTRADERMA PRN
[2020-04-29 10:17] VITALS: RESP 16; TEMP 98.1
[2020-04-29] MEDS ORDERED: PROPOFOL 10 MG/ML 20 ML VIAL IV ONE (10:43)
[2020-04-29] MEDS ORDERED: LIDOCAINE 1% INJ 10MG/ML (20 ML MDV) ONE (10:43)
--- NOTE | 2020-04-29 10:59 | P.PCN ---
Date of Procedure: 04/29/20 Procedure(s) Performed: BRIEF HISTORY: Patient is a 65-year-old pleasant female scheduled for an elective colonoscopy as a part of evaluation of prior history of colon polyps. Last coloscopy was 5 years ago. PROCEDURE PERFORMED: Colonoscopy with biopsy. PREOPERATIVE DIAGNOSIS: History of colon polyps. IV sedation per Anesthesia. PROCEDURE: After informed consent was obtained, the patient, was brought into the endoscopy unit. IV sedation was administered by Anesthesia under continuous monitoring. Digital rectal examination was normal. Initially the Olympus CF-160 flexible video colonoscope was then inserted in the rectum, gradually advanced into the cecum without any difficulty. Careful examination was performed as the scope was gradually being withdrawn. Ileocecal valve and the appendiceal orifice were visualized and appeared normal. Prep was excellent. In the cecum there was a 5 mm polyp that was removed by cold biopsy. Mucosa of the cecum, ascending colon, transverse colon, descending colon, sigmoid colon, and rectum appeared normal. Scattered sigmoid diverticulosis seen. Retroflexion was performed in the rectum and no lesions were seen. The patient tolerated the procedure well. IMPRESSION: 5 mm cecal polyp status post removal by cold biopsy Rest of the colon appeared normal Scattered sigmoid diverticulosis RECOMMENDATIONS: Findings of this examination were discussed with the patient well as her family. She was advised to follow with the biopsy results and have a repeat colonoscopy in 5 years.
[2020-04-29 11:03] VITALS: PULSE 81
[2020-04-29 11:28] VITALS: BP 123/74
== END 2020-04-29 11:30 ==
LOC: ORWHC2ENDO 09:29
PROVIDERS: ATTEND Internal Medicine Gastroenterology
DX: Z12.11 Encounter for screening for malignant neoplasm of colon (principal); D12.0 Benign neoplasm of cecum; K57.30 Diverticulosis of large intestine without perforation or abscess without bleeding; Z86.010 Personal history of colon polyps; I10 Essential (primary) hypertension; E78.5 Hyperlipidemia, unspecified; J44.9 Chronic obstructive pulmonary disease, unspecified; E07.9 Disorder of thyroid, unspecified; K21.9 Gastro-esophageal reflux disease without esophagitis; Z88.0 Allergy status to penicillin; Z88.1 Allergy status to other antibiotic agents; Z79.890 Hormone replacement therapy; Z79.899 Other long term (current) drug therapy
CPT/HCPCS: 88305; 45380; J2001; J2704

== ENCOUNTER → 2020-09-28 | Outpatient (CLI) | payer MEDICARE | END | disposition home or self-care (01) | LOC: LABWHC1 07:39 | PROVIDERS: ATTEND Family Medicine | DX: Z13.0 Encounter for screening for diseases of the blood and blood-forming organs and certain disorders involving the immune mechanism (principal); Z83.2 Family history of diseases of the blood and blood-forming organs and certain disorders involving the immune mechanism; S20.329A Blister (nonthermal) of unspecified front wall of thorax, initial encounter | CPT/HCPCS: 36415; 81256; 82728 ==

== ENCOUNTER → 2021-02-22 | Outpatient (CLI) | payer MEDICARE ==
[2021-02-22 10:00] VITALS: BP 134/68; PULSE 72; RESP 12; TEMP 98.3
--- NOTE | 2021-02-22 10:34 | P.HPOB ---
History of Present Illness H&P Date: 02/22/21 Chief Complaint: The patient is here for her routine gynecologic exam and ma mmogram. This is a 65-year-old 023 with an LMP of 2002. The patient is without gynecologic complaints and denies any postmenopausal bleeding. Review of Systems The patient has gained 4 pounds over the last year. She denies respiratory, cardiac, or G.I. problems. Past Medical History Past Medical History: Asthma, COPD, Hyperlipidemia, Thyroid Disorder Additional Past Medical History / Comment(s): Hypothyroidism. Leg edema. 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 History of Any Multi-Drug Resistant Organisms: None Reported Past Surgical History: Appendectomy, Breast Surgery, Tonsillectomy Additional Past Surgical History / Comment(s): Tonsillectomy age 58, breast biopsy 2004, exploratory laprarotomy with ovarian cystectomy and appendectomy 1971, D&C x3 1969, colonoscopy 2019 (next after 5yr). Past Psychological History: No Psychological Hx Reported Smoking Status: Former smoker Past Alcohol Use History: Occasional (1 per month) Additional Past Alcohol Use History / Comment(s): Quit smoking in 1997. Past Drug Use History: None Reported Additional History: She has been since 1994 and is retired. 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 - Past Family History Father Family Medical History: Cancer Additional Family Medical History / Comment(s): Bowel cancer. Mother Family Medical History: Dementia Additional Family Medical History / Comment(s): Maternal aunt had breast cancer. Medications and Allergies Home Medications Medication Instructions Recorded Confirmed Type Levothyroxine Sodium [Synthroid] 112 mcg PO DAILY 04/27/15 02/22/21 History Albuterol Inhaler (Mhu) [Ventolin 1 - 2 inhaler PO ONCE PRN 08/07/17 02/22/21 History Hfa Inhaler] Atorvastatin [Lipitor] 10 mg PO DAILY 02/03/20 02/22/21 History Cholecalciferol [Vitamin D3 (25 5,000 unit PO DAILY 02/03/20 02/22/21 History Mcg = 1000 Iu)] Furosemide [Lasix] 20 mg PO DAILY 02/03/20 02/22/21 History Loratadine [Claritin] 10 mg PO DAILY 02/03/20 02/22/21 History Latanoprost Ophth [Xalatan 0.005%] 1 drops BOTH EYES HS 04/28/20 02/22/21 History Thera Tears 1 drop BOTH EYES DIRECTED 04/28/20 02/22/21 History Allergies Allergy/AdvReac Type Severity Reaction Status Date / Time erythromycin base Allergy Nausea & Verified 02/22/21 09:20 Vomiting Penicillins Allergy Swelling Verified 02/22/21 09:20 Exam Vital Signs Temp Pulse Resp BP Pulse Ox 02/22/21 09:27 98.3 F 72 12 134/68 96 Intake and Output 02/21/21 02/22/21 02/22/21 22:59 06:59 14:59 Other: Weight 94.801 kg Height 5 feet 3 inches, weight 209 pounds, BMI 37.0. This is a well-developed well-nourished white female who is alert and oriented times 3 in no acute distress. HEENT: Within normal limits. NECK: Supple without mass or thyromegaly. CHEST AND LUNGS: Clear to auscultation. HEART: Regular rate and rhythm. BREASTS: Are without mass or discharge. AXILLARY EXAM: Negative for adenopathy. BACK: Negative for CVA tenderness. ABDOMEN: Soft, nontender, without palpable masses. PELVIC EXAM: Normal external genitalia with mild atrophy. Cervix and vagina appear normal with mild atrophy. There is no unusual discharge. There is no evidence of prolapse. The uterus is midposition, nongravid size and nontender. There are no palpable adnexal masses or tenderness. RECTAL EXAM: Rectovaginal exam is negative for mass or tenderness and is negative for occult blood. EXTREMITIES: Nontender. IMPRESSION: 1. 65-year-old menopausal female with normal gynecologic exam PLAN: 1. Pap smear was deferred since she had a normal one on 02/03/2020. 2. Self breast awareness was discussed with the patient. We have also discussed symptoms associated with inflammatory breast cancer. 3. Screening mammogram will be done today. 4. Her last bone density test done in 2017 was normal. We will plan on repeating that in the approximately 2 years. 5. She has completed her Covid vaccination series. She plans to get her flu shot in the near future. 6. She was advised to return in one year for her annual well woman exam.
--- NOTE | 2021-02-23 12:06 | MM ---
Reason for exam: screening (asymptomatic). Last mammogram was performed 1 year and 1 month ago. History: Patient is postmenopausal. Family history of breast cancer in aunt. Benign stereotactic core biopsy of the right breast, September 16, 2001. Excisional biopsy of the left breast, 2000. Cyst aspiration of the right breast, 1999. Took hormonal contraceptives for 3 years. Took progesterone for 4 months. Physical Findings: A clinical breast exam by your physician is recommended on an annual basis and results should be correlated with mammographic findings. MG 3D Screening Mammo W/Cad Bilateral CC and MLO view(s) were taken. Prior study comparison: February 03, 2020, bilateral MG 3d screening mammo w/cad. November 19, 2018, bilateral MG 3d screening mammo w/cad. August 07, 2017, bilateral MG 3d screening mammo w/cad. There are scattered fibroglandular densities. No significant changes when compared with prior studies. ASSESSMENT: Benign, BI-RAD 2 RECOMMENDATION: Routine screening mammogram of both breasts in 1 year.
== END ==
LOC: WWCWWP 09:15
PROVIDERS: ATTEND Obstetrics & Gynecology
DX: Z12.31 Encounter for screening mammogram for malignant neoplasm of breast (principal); Z01.419 Encounter for gynecological examination (general) (routine) without abnormal findings; J44.9 Chronic obstructive pulmonary disease, unspecified; E78.5 Hyperlipidemia, unspecified; E03.9 Hypothyroidism, unspecified; Z80.3 Family history of malignant neoplasm of breast; Z87.891 Personal history of nicotine dependence; Z79.899 Other long term (current) drug therapy; Z79.51 Long term (current) use of inhaled steroids; Z88.0 Allergy status to penicillin; Z88.1 Allergy status to other antibiotic agents
CPT/HCPCS: 77063; 77067

== ENCOUNTER → 2021-03-16 | Outpatient (CLI) | payer MEDICARE ==
--- NOTE | 2021-03-17 10:14 | MM ---
Reason for exam: additional evaluation requested from abnormal screening. Last mammogram was performed 1 month ago. History: Patient is postmenopausal. Family history of breast cancer in aunt. Benign stereotactic core biopsy of the right breast, September 16, 2001. Excisional biopsy of the left breast, 2000. Cyst aspiration of the right breast, 1999. Took hormonal contraceptives for 3 years. Took progesterone for 4 months. Physical Findings: Nurse did not find any significant physical abnormalities on exam. MG 3D Work Up W/Cad LT CC and MLO view(s) were taken of the left breast. Prior study comparison: February 22, 2021, bilateral MG 3d screening mammo w/cad. February 03, 2020, bilateral MG 3d screening mammo w/cad. There are scattered fibroglandular densities. 1.1cm round node with new course and punctate calcifications in the axillary tail. These results were verbally communicated with the patient and result sheet given to the patient on 03/16/21. ASSESSMENT: Incomplete: need additional imaging evaluation, BI-RAD 0 RECOMMENDATION: Ultrasound of the left breast.
--- NOTE | 2021-03-17 10:17 | USB ---
Reason for exam: additional evaluation requested from abnormal screening. History: Patient is postmenopausal. Family history of breast cancer in aunt. Benign stereotactic core biopsy of the right breast, September 16, 2001. Excisional biopsy of the left breast, 2000. Cyst aspiration of the right breast, 1999. Took hormonal contraceptives for 3 years. Took progesterone for 4 months. US Breast Workup Limited LT Left limited breast ultrasound including focal area of concern, retroareolar and axilla demonstrates a 11 x 9 x 8mm oval, lobular, solid, hypoechoic lesion at 3 o'clock, shadowing, biopsy recommended, a 8mm and a 6mm axillary lymph node. Scanned the axilla and axillary tail. These results were verbally communicated with the patient and result sheet given to the patient on 03/16/21. ASSESSMENT: Suspicious, BI-RAD 4 RECOMMENDATION: Ultrasound core biopsy of both breasts. Called Dr. Avila's office with mammographic findings and has scheduled an appointment for the patient for 05/18/21 at 4:[address] Rudd. Biopsy scheduled for 04/05/21 at 10:30. PRELIMINARY REPORT CALLED AND FAXED TO DR. RUDD ON 03/17/21.
== END | disposition home or self-care (01) ==
LOC: RADMAMWWP 13:26
PROVIDERS: ATTEND Obstetrics & Gynecology
DX: N64.89 Other specified disorders of breast (principal); Z80.3 Family history of malignant neoplasm of breast; Z78.0 Asymptomatic menopausal state
CPT/HCPCS: 77065; 76642; G0279; 77061

== ENCOUNTER → 2021-04-05 | Day surgery (SDC) | payer MEDICARE ==
[2021-04-05 09:40] VITALS: RESP 16
[2021-04-05 11:09] VITALS: BP 103/67; PULSE 75; TEMP 98
--- NOTE | 2021-04-05 11:11 | USB ---
EXAMINATION TYPE: US biopsy breast VAD LT, MG diagnostic mammo LT wo CAD DATE OF EXAM: 04/05/2021 CLINICAL HISTORY: R92.8 abnormal mammogram. TECHNIQUE: Ultrasound guided core biopsy of left 3:00 breast. COMPARISON: NONE FINDINGS: The procedure of ultrasound guided core biopsy was explained to the patient. Benefits, alternatives, and risks were discussed. An informed consent was then obtained. The patient was placed in supine positioning for imaging and for the procedure. The overlying skin was prepped and draped in usual sterile fashion. Lidocaine buffered with bicarbonate was used as anesthetic into the skin and subcutaneous tissue up to area of concern in the left 3:00 breast. A warner was made with surgical scalpel. Under ultrasound guidance, a 12-gauge vacuum assisted biopsy gun device was used to obtain 3 core samples. Following this, a biopsy clip was left in lesion. Postprocedural mammogram demonstrates appropriate clip placement. The patient tolerated the procedure well without any immediate complication. The patient was kept in the radiology department for short stay after the procedure and then discharged home in stable condition. IMPRESSION: Successful, uncomplicated ultrasound guided core biopsy of area of concern in the left 3:00 breast, full pathology results to follow. Pathology Results: Benign LEFT BREAST, 3:00, ULTRASOUND GUIDED CORE BIOPSY: Fibroadenoma. Recommendation Follow up mammogram of the left breast in 6 months. HOLA
== END ==
LOC: RADUSWWP 09:20
PROVIDERS: ATTEND Surgery
DX: D24.2 Benign neoplasm of left breast (principal)
CPT/HCPCS: 88305; 77065; 19083; A4648; J2001

== ENCOUNTER → 2021-04-18 | Outpatient (CLI) | payer MEDICARE ==
--- NOTE | 2021-04-18 08:32 | XR ---
EXAMINATION TYPE: XR lumbar spine 2 or 3V DATE OF EXAM: 04/18/2021 CLINICAL HISTORY: pain TECHNIQUE: Three views of the lumbar spine are submitted. COMPARISON: None. FINDINGS: There are 5 lumbar type vertebral bodies identified. The lumbar spine shows satisfactory alignment w ithout evidence of acute fracture or dislocation. Vertebral body heights are within normal limits. Moderate degenerative blood disc space narrowing and spondylosis. Facet joint arthropathy. The overl janneth soft tissue appears unremarkable. IMPRESSION: No acute fracture or dislocation is seen in the lumbar spine. ICD 10 NO FRACTURE, INITIAL EVALUATION
[2021-04-18 14:26] LABS: Basophils # (A) 0.04 X 10*3/uL (0.00-0.10); Basophils % (A) 0.8 %; Eosinophils # (A) 0.12 X 10*3/uL (0.04-0.35); Eosinophils % (A) 2.3 %; HCT 45.1 % (37.2-46.3); HGB 14.2 g/dL (12.0-15.0); Lymphocytes # (A) 1.67 X 10*3/uL (0.90-5.00); Lymphocytes % (A) 32.1 %; MCH 30.1 pg (27.0-32.0); MCHC 31.5 g/dL (32.0-37.0); MCV 95.6 fL (80.0-97.0); Mean Platelet Volume 10.3 fL (9.5-12.2); Monocytes # (A) 0.43 X 10*3/uL (0.20-1.00); Monocytes % (A) 8.3 %; Neutrophils # (A) 2.94 X 10*3/uL (1.80-7.70); Neutrophils % (A) 56.3 %; Platelet Count 251 X 10*3/uL (140-440); RBC 4.72 X 10*6/uL (4.10-5.20); RDW 12.2 % (11.5-14.5); WBC 5.21 X 10*3/uL (4.50-10.00)
[2021-04-18 15:20] LABS: ALT 30 U/L (8-44); AST 23 U/L (13-35); Albumin 4.4 g/dL (3.8-4.9); Albumin/Globulin Ratio 1.71 (1.60-3.17); Alkaline Phosphatase 69 U/L (41-126); BUN/Creat Ratio 16.89 Ratio (12.00-20.00); Carbon Dioxide 24.9 mmol/L (20.0-27.5); Chloride 104 mmol/L (96-109); Chol/HDL Ratio 3.71 Ratio; Globulin 2.6 g/dL (1.6-3.3); Glucose 106 mg/dL (70-110); LDL Cholesterol,Calculated 154.5 mg/dL (0.0-131.0); Non-African American GFR(CKD) 68.2 (60.0-200.0); Potassium 4.5 mmol/L (3.5-5.5); Sodium 141 mmol/L (135-145); Total Protein 6.9 g/dL (6.2-8.2)
== END | disposition home or self-care (01) ==
LOC: LABWHC1 07:12
PROVIDERS: ATTEND Nurse Practitioner Family
DX: Z00.00 Encounter for general adult medical examination without abnormal findings (principal); M54.50 Low back pain, unspecified; E03.9 Hypothyroidism, unspecified; Z83.2 Family history of diseases of the blood and blood-forming organs and certain disorders involving the immune mechanism
CPT/HCPCS: 36415; 72100; 80053; 80061; 84443; 85025

== ENCOUNTER → 2021-10-06 | Outpatient (CLI) | payer MEDICARE ==
--- NOTE | 2021-10-07 10:00 | USB ---
Reason for Exam: Follow-up at short interval from prior study. Last screening mammogram was performed 7 month(s) ago. Patient History: Menarche at age 12. First Full-Term at age 18. Postmenopausal. Progesterone for 4 months. Patient used Hormonal Contraceptives for 3 years. 1999, Cyst Aspiration on the Right side. 2000, Excisional Biopsy on the Left side. 04/05/2021, Benign Core Biopsy on the left side. 09/16/2001, Benign Stereotactic Core Biopsy on the right side. Maternal aunt had breast cancer at or over age 50. Risk Values: Candie 5 year model risk: 1.8%. NCI Lifetime model risk: 6.5%. Prior Study Comparison: 02/22/2021 Bilateral Screening Mammogram, [facility]. 03/16/2021 Left Diagnostic Mammogram, [facility]. 04/05/2021 Left Diagnostic Mammogram, [facility]. Tissue Density: Left: There are scattered fibroglandular densities. Findings: Analyzed By CAD. No significant changes when compared with prior studies. There is a stable, high, round, circumscribed mass with calcification in the left upper outer axilla. Previous mammotome biopsy within the left breast. These results were verbally communicated with the patient at the time of exam. Findings: Left limited breast ultrasound including focal area of concern, retroareolar and axilla demonstrates a 0.7 x 0.9 x 0.6cm round, circumscribed lesion at 3 o'clock. These results were verbally communicated with the patient at the time of exam. Overall Assessment: Benign, BI-RAD 2 Assessment: MG 3D diag mammo w/cad LT - Left: Benign, BI-RAD 2. US breast LT - Left: Benign, BI-RAD 2. Management: Return to routine follow-up (next follow-up: 02/22/2022 for Screening Mammogram) Electronically signed and approved by: Jorge Castro D.O. Radiologis
--- NOTE | 2021-10-18 07:14 | MM ---
Reason for Exam: Follow-up at short interval from prior study. Last screening mammogram was performed 7 month(s) ago. Patient History: Menarche at age 12. First Full-Term at age 18. Postmenopausal. Progesterone for 4 months. Patient used Hormonal Contraceptives for 3 years. 1999, Cyst Aspiration on the Right side. 2000, Excisional Biopsy on the Left side. 04/05/2021, Benign Core Biopsy on the left side. 09/16/2001, Benign Stereotactic Core Biopsy on the right side. Maternal aunt had breast cancer at or over age 50. Risk Values: Candie 5 year model risk: 1.8%. NCI Lifetime model risk: 6.5%. Prior Study Comparison: 02/22/2021 Bilateral Screening Mammogram, [facility]. 03/16/2021 Left Diagnostic Mammogram, [facility]. 04/05/2021 Left Diagnostic Mammogram, [facility]. Tissue Density: Left: There are scattered fibroglandular densities. Findings: Analyzed By CAD. No significant changes when compared with prior studies. There is a stable, high, round, circumscribed mass with calcification in the left upper outer axilla. Previous mammotome biopsy within the left breast. These results were verbally communicated with the patient at the time of exam. Findings: Left limited breast ultrasound including focal area of concern, retroareolar and axilla demonstrates a 0.7 x 0.9 x 0.6cm round, circumscribed lesion at 3 o'clock. These results were verbally communicated with the patient at the time of exam. Overall Assessment: Benign, BI-RAD 2 Assessment: MG 3D diag mammo w/cad LT - Left: Benign, BI-RAD 2. US breast LT - Left: Benign, BI-RAD 2. Management: Return to routine follow-up (next follow-up: 02/22/2022 for Screening Mammogram) Electronically signed and approved by: Jorge Castro D.O. Radiologis
== END | disposition home or self-care (01) ==
LOC: RADMAMWWP 17:06
PROVIDERS: ATTEND Surgery
DX: N64.89 Other specified disorders of breast (principal); Z78.0 Asymptomatic menopausal state; Z80.3 Family history of malignant neoplasm of breast
CPT/HCPCS: 77065; 76642; G0279; 77061

== ENCOUNTER → 2021-11-05 | Outpatient (CLI) | payer MEDICARE ==
--- NOTE | 2021-11-05 11:14 | MR ---
EXAMINATION TYPE: MR brain wo con DATE OF EXAM: 11/05/2021 10:58 AM COMPARISON: EXAMINATION TYPE: MR brain wo con DATE OF EXAM: 11/05/2021 10:58 AM COMPARISON: None HISTORY: Sixth nerve palsy right. Double vision. FINDINGS: The ventricles, basal cisterns and sulci overlying the cerebral convexities are mildly enlarged. There is evidence of mild periventricular white matter ischemic demyelination. Remote deep white matter insults are also noted. No acute edema is seen on diffusion weighted imaging. There is no evidence for midline shift or mass effect. Acute intracranial hemorrhage or extra-axial collection is not evident. Chronic maxillary paranasal sinusitis. Mastoid air cells are well-aerated. IMPRESSION: Age-related atrophic and chronic small vessel ischemic change. No acute intracranial process at this time.
== END | disposition home or self-care (01) ==
LOC: RADMRIMAIN 10:26
PROVIDERS: ATTEND Ophthalmology
DX: G31.9 Degenerative disease of nervous system, unspecified (principal); I67.82 Cerebral ischemia
CPT/HCPCS: 70551

== ENCOUNTER → 2022-05-11 | Outpatient (CLI) | payer MEDICARE ==
--- NOTE | 2022-05-11 15:28 | XR ---
EXAMINATION TYPE: XR chest 2V DATE OF EXAM: 05/11/2022 COMPARISON: 12/30/2018 INDICATION: Asthma history TECHNIQUE: Frontal and lateral views of the chest are obtained. FINDINGS: The heart size is normal. The pulmonary vasculature is normal. The lungs are clear. IMPRESSION: 1. No acute pulmonary process.
== END | disposition home or self-care (01) ==
LOC: RADXRMAIN 15:02
PROVIDERS: ATTEND Internal Medicine
DX: J45.901 Unspecified asthma with (acute) exacerbation (principal)
CPT/HCPCS: 71046

== ENCOUNTER → 2022-05-16 | Outpatient (CLI) | payer MEDICARE ==
[2022-05-16 13:25] VITALS: BP 125/78; PULSE 78; RESP 17; TEMP 97.9
--- NOTE | 2022-05-16 14:00 | P.HPOB ---
History of Present Illness H&P Date: 05/16/22 Chief Complaint: The patient is here for her routine gynecologic exam and ma mmogram. This is a 66-year-old 0-3 with an LMP of 2002. The patient is without gynecologic complaints and denies any postmenopausal bleeding. Review of Systems She has lost about 17 pounds over the past year. Respiratory: Occasional asthma symptoms. She did have to use her inhaler earlier today. She denies cardiac or GI problems. Past Medical History Past Medical History: Asthma, COPD, Eye Disorder, Hyperlipidemia, Thyroid Disorder Additional Past Medical History / Comment(s): Hypothyroidism. Leg edema. Closed angle glaucoma. 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 History of Any Multi-Drug Resistant Organisms: None Reported Past Surgical History: Appendectomy, Breast Surgery, Tonsillectomy Additional Past Surgical History / Comment(s): Tonsillectomy age 58, breast biopsy 2004, exploratory laprarotomy with ovarian cystectomy and appendectomy 1971, D&C x3 1969, colonoscopy 2019 (next after 5yr). Fusion on neck 2010 Past Anesthesia/Blood Transfusion Reactions: Postoperative Nausea & Vomiting (PONV) Past Psychological History: No Psychological Hx Reported Smoking Status: Former smoker Past Alcohol Use History: Occasional (1 drink every 3 months.) Additional Past Alcohol Use History / Comment(s): Quit smoking in 1997. Past Drug Use History: None Reported Additional History: She has been since 1994 and is retired. 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 - Past Family History Father Family Medical History: Cancer Additional Family Medical History / Comment(s): Bowel cancer. Mother Family Medical History: Dementia Additional Family Medical History / Comment(s): Maternal aunt had breast cancer. Medications and Allergies Home Medications Medication Instructions Recorded Confirmed Type Levothyroxine Sodium [Synthroid] 112 mcg PO DAILY 04/27/15 05/16/22 History Albuterol Inhaler [Ventolin Hfa 1 - 2 inhaler PO ONCE PRN 08/07/17 05/16/22 History Inhaler] Cholecalciferol [Vitamin D3 (25 5,000 unit PO DAILY 02/03/20 05/16/22 History Mcg = 1000 Iu)] Loratadine [Claritin] 10 mg PO DAILY 02/03/20 05/16/22 History Latanoprost Ophth [Xalatan 0.005%] 1 drops BOTH EYES HS 04/28/20 05/16/22 History Thera Tears 1 drop BOTH EYES DIRECTED 04/28/20 05/16/22 History Atorvastatin [Lipitor] 20 mg PO DAILY 05/16/22 05/16/22 History Fluticasone Propionate 110 Mcg 1 puff INHALATION DAILY 05/16/22 05/16/22 History [Flovent 110 Mcg Inhaler] Allergies Allergy/AdvReac Type Severity Reaction Status Date / Time erythromycin base Allergy Nausea & Verified 05/16/22 13:20 Vomiting Penicillins Allergy Swelling Verified 05/16/22 13:20 Exam Vital Signs Temp Pulse Resp BP Pulse Ox 05/16/22 13:23 97.9 F 78 17 125/78 95 Intake and Output 05/15/22 05/16/22 05/16/22 22:59 06:59 14:59 Other: Weight 87.09 kg Height 5 foot 1 inch, weight 192 pounds, BMI 36.3. This is a well-developed well-nourished white female who is alert and oriented times 3 in no acute distress. HEENT: Within normal limits. NECK: Supple without mass or thyromegaly. CHEST AND LUNGS: Clear to auscultation. HEART: Regular rate and rhythm. BREASTS: Are without mass or discharge. AXILLARY EXAM: Negative for adenopathy. BACK: Negative for CVA tenderness. ABDOMEN: Soft, nontender, without palpable masses. PELVIC EXAM: Normal external genitalia with mild atrophy. Cervix and vagina appear normal with mild atrophy. There is no unusual discharge. There is a grade 1-2 cystocele noted. The uterus is midposition, nongravid size and nontender. There are no palpable adnexal masses or tenderness. RECTAL EXAM: Rectovaginal exam is negative for mass or tenderness and is negative for occult blood. EXTREMITIES: Nontender. IMPRESSION: 1. 66-year-old menopausal female with an asymptomatic grade 1-2 cystocele. Otherwise unremarkable gynecologic exam. PLAN: 1. Pap smear was performed. If this is negative, we will plan on discontinuing Pap smears. 2. Self breast awareness was discussed with the patient. We have also discussed symptoms associated with inflammatory breast cancer. 3. Screening mammogram was done today. 4. Osteoporosis prevention was discussed. I have stressed the importance of adequate calcium, vitamin D and regular exercise. Recommended amounts of calcium and vitamin D were also discussed. Bone density testing will be due this year and the order slip was given to the patient for this. 5. She has completed her Covid vaccination series and has not received any boosters. She has had Covid in the past. She is aware that Covid vaccination boosters are available and may increase protection. 6. We have discussed the small cystocele. At this time conservative management is planned. She is to avoid holding urine longer than necessary. 7. She was advised to return in one year for her annual well woman exam and as needed.
--- NOTE | 2022-05-17 17:50 | MM ---
Reason for Exam: Screening (asymptomatic). Last mammogram was performed 1 year(s) and 3 month(s) ago. Patient History: Menarche at age 12. First Full-Term at age 18. Postmenopausal. Progesterone for 4 months. Patient used Hormonal Contraceptives for 3 years. 1999, Cyst Aspiration on the Right side. 2000, Excisional Biopsy on the Left side. 04/05/2021, Benign Core Biopsy on the left side. 09/16/2001, Benign Stereotactic Core Biopsy on the right side. Maternal aunt had breast cancer at or over age 50. Risk Values: Candie 5 year model risk: 1.8%. NCI Lifetime model risk: 6.5%. Prior Study Comparison: 08/07/2017 Bilateral Screening Mammogram, [facility]. 11/19/2018 Bilateral Screening Mammogram, [facility]. 02/03/2020 Bilateral Screening Mammogram, [facility]. 02/22/2021 Bilateral Screening Mammogram, [facility]. 03/16/2021 Left Diagnostic Mammogram, [facility]. 04/05/2021 Left Diagnostic Mammogram, [facility]. 10/06/2021 Left MG 3D diag mammo w/cad LT, [facility]. Tissue Density: There are scattered fibroglandular densities. Findings: Analyzed By CAD. Pattern appears symmetrical and stable. Coarse calcifications are present bilaterally. No significant interval changes are evident. No suspicious groups of microcalcifications, spiculated or lobular masses, architectural distortion or other secondary signs of malignancy are mammographically apparent. Overall Assessment: Benign, BI-RAD 2 Management: Screening Mammogram of both breasts in 1 year. A negative mammogram report should not preclude additional follow up of suspicious palpable abnormalities. Patient should continue monthly self breast exam. A clinical breast exam by your physician is recommended on an annual basis and results should be correlated with mammographic findings. Electronically signed and approved by: Jorge Castro D.O. Radiologis
== END ==
LOC: WWCWWP 12:32
PROVIDERS: ATTEND Obstetrics & Gynecology
DX: Z12.31 Encounter for screening mammogram for malignant neoplasm of breast (principal); Z78.0 Asymptomatic menopausal state; N81.10 Cystocele, unspecified; E78.5 Hyperlipidemia, unspecified; E03.9 Hypothyroidism, unspecified; Z79.890 Hormone replacement therapy; J44.9 Chronic obstructive pulmonary disease, unspecified; Z88.1 Allergy status to other antibiotic agents; Z88.0 Allergy status to penicillin; Z87.891 Personal history of nicotine dependence
CPT/HCPCS: 77063; 77067

== ENCOUNTER → 2022-06-13 | Outpatient (CLI) | payer MEDICARE ==
--- NOTE | 2022-06-13 15:40 | BD ---
EXAMINATION TYPE: Axial Bone Density DATE OF EXAM: 06/13/2022 COMPARISON: 07/13/2016 CLINICAL HISTORY: 66 years old Female. ICD-10 CODE: Z78.0 ASYMPTOMATIC [place] STATE Height: 61 Weight: 191 FRAX RISK QUESTIONS: Family History (Parent hip fracture): NO History of Fracture in Adulthood: NO Secondary Osteoporosis: NO Rheumatoid Arthritis: NO RISK FACTORS HISTORY OF: Surgery to Spine: YES C-5/C-6 When: 2010 Family History of Osteoporosis: NO Active: YES Diet low in dairy products/other sources of calcium: YES Postmenopausal woman: YES Lost more than 2 inches in height since high school: NO Frequent falls: NO Poor Health: NO MEDICATIONS: Thyroid Medications: YES Which medication: Synthroid How Lon+ YEARS Additional Medications: YES D3 , CLARITIN , MULTI VIT EXAM MEASUREMENTS: Bone mineral densitometry was performed using the Lumense System. Bone mineral density as measured about the Lumbar spine is: ----- L1-L4(G/cm2): 1.435 T Score Values are as follows: ----- L1: 1.4 ----- L2: 1.8 ----- L3: 2.4 ----- L4: 2.6 ----- L1-L4: 2.1 Bone mineral density has: Decreased -4.0% since study of: 07/13/2016 Bone mineral density about the R hip (g/cm2): 1.096 Bone mineral density about the L hip (g/cm2): 1.151 T Score values are as follows: -----R Neck: -1.0 -----L Neck: -0.3 -----R Total: 0.7 -----L Total: 1.1 Bone mineral density has: Decreased -2.3% since study of: 07/13/2016 FRAX%s: The graph provided illustrates a 7.6% chance for a major osteoporotic fx and a 0.6% chance fo r the hips probability for fx in 10 years time. IMPRESSION: Normal (Values between +1 and -1 indicate normal bone mass). Consider repeating this study in 5 year s or sooner if there is some new clinical indication. NOTE: T-SCORE=SD OF THE YOUNG ADULT MEAN.
--- NOTE | 2022-06-14 13:39 | P.PN ---
Progress Note - Text Progress Note Date: 06/14/22 OUTPATIENT FOLLOW-UP NOTE TEST(S)/RESULTS: Bone density test done on 06/13/2020 was normal. METHOD OF NOTIFICATION: The patient was notified by phone. PATIENT COMMENTS: DIAGNOSIS: Normal bone density test. DISCUSSION: She was notified that there was a slight decrease in the hip measurements and the right hip is at the low normal range. I have stressed the importance of adequate calcium, vitamin D, and regular exercise. PLAN: Repeat bone density test in 5 years. She was advised to return in one year for her annual well woman exam.
== END | disposition home or self-care (01) ==
LOC: RADBDWWP 14:12
PROVIDERS: ATTEND Obstetrics & Gynecology
DX: Z78.0 Asymptomatic menopausal state (principal)
CPT/HCPCS: 77080

== ENCOUNTER → 2022-08-09 | Outpatient (CLI) | payer MEDICARE ==
--- NOTE | 2022-08-10 06:57 | CT ---
EXAMINATION TYPE: CT abdomen pelvis w con DATE OF EXAM: 08/09/2022 HISTORY: epigastric pain and elevated lipase CT DLP: 1129.4mGycm Automated Exposure Control for Dose Reduction was Utilized. CONTRAST: CT scan of the abdomen and pelvis is performed with IV Contrast, patient injected with 80 mL of Isovu e 300. COMPARISON: None. FINDINGS: LUNG BASES: No significant abnormality is appreciated. LIVER/GB: Cholecystectomy clips are present. PANCREAS: Pancreas normal in size without mass or ductal dilatation. No well-formed fluid collection is seen. No free air. SPLEEN: No significant abnormality is seen. ADRENALS: No significant abnormality is seen. KIDNEYS: Symmetric cortical medullary uptake and excretion without hydronephrosis seen bilaterally. T here is subcentimeter round low dense lesion right kidney delayed axial image 38 too small to further characterize presumed benign. BOWEL: Oral contrast does not reach the level of the distal ileum making evaluation slightly suboptim al. There is no suspicious small or large bowel dilatation. A rare colonic diverticula is seen. There is no CT evidence for acute diverticulitis. UTERUS/ADNEXA: Anteverted uterus. Unremarkable symmetric appearing bilateral ovaries. LYMPH NODES: Mild haziness of the left mesenteric fat with view prominent but subcentimeter lymph nod es in the mid abdomen axial image 33 for reference. No greater than 1 cm abdominal or pelvic adenopat hy. OSSEOUS STRUCTURES: No significant abnormality is seen. OTHER: Mild calcified plaque of the aorta extends into branch vessels. IMPRESSION: Mild haziness in the central abdomen could reflect product of a mild acute pancreatitis. Mesenteric panniculitis is in differential. Advise clinical follow-up and continued imaging follow-up to reassess in 3-6 months time.
== END | disposition home or self-care (01) ==
LOC: RADCTMAIN 14:37
PROVIDERS: ATTEND Internal Medicine
DX: K85.90 Acute pancreatitis without necrosis or infection, unspecified (principal)
CPT/HCPCS: 74177; Q9967

== ENCOUNTER → 2022-08-11 | Outpatient (CLI) | payer MEDICARE ==
[2022-08-11 09:14] LABS: ALT 27 U/L (4-34); AST 27 U/L (14-36); African American GFR (CKD) 85 (>60 ml/min/1.73 sqM); Albumin 4.2 g/dL (3.5-5.0); Albumin/Globulin Ratio 1.3; Alkaline Phosphatase 64 U/L (38-126); Amylase 68 U/L (30-110); Anion Gap 6 mmol/L; Blood Urea Nitrogen 16 mg/dL (7-17); Calcium 9.1 mg/dL (8.4-10.2); Carbon Dioxide 30 mmol/L (22-30); Chloride 105 mmol/L (98-107); Globulin 3.2 g/dL; Glucose 99 mg/dL (74-99); Lipase 200 U/L (23-300); Non-African American GFR(CKD) 74 (>60 ml/min/1.73 sqM); Potassium 4.5 mmol/L (3.5-5.1); Sodium 141 mmol/L (137-145); Total Bilirubin 0.6 mg/dL (0.2-1.3); Total Protein 7.4 g/dL (6.3-8.2)
[2022-08-11 09:18] LABS: T4, Free (Free Thyroxine) 1.86 ng/dL (0.78-2.19)
[2022-08-11 09:31] LABS: Ionized Calcium 5.1 mg/dL (4.5-5.3)
[2022-08-11 10:52] LABS: Basophils # (A) 0.03 X 10*3/uL (0.00-0.10); Basophils % (A) 0.7 %; Eosinophils # (A) 0.12 X 10*3/uL (0.04-0.35); Eosinophils % (A) 2.7 %; HCT 43.2 % (37.2-46.3); HGB 13.8 g/dL (12.0-15.0); Immature Grans, Automated 0.2 %; Lymphocytes # (A) 1.54 X 10*3/uL (0.90-5.00); Lymphocytes % (A) 34.3 %; MCHC 31.9 g/dL (32.0-37.0); MCV 93.9 fL (80.0-97.0); Mean Platelet Volume 10.4 fL (9.5-12.2); Monocytes % (A) 11.1 %; NRBC Per 100 WBC 0 /100 WBCS (0.0-0.0); Neutrophils # (A) 2.29 X 10*3/uL (1.80-7.70); Platelet Count 247 X 10*3/uL (140-440); RDW 12.8 % (11.5-14.5); WBC 4.49 X 10*3/uL (4.50-10.00)
[2022-08-11 19:11] LABS: Chol/HDL Ratio 4.62 Ratio; LDL Cholesterol,Calculated 192.8 mg/dL (0.0-131.0)
== END | disposition home or self-care (01) ==
LOC: LABWHC1 07:50
PROVIDERS: ATTEND Internal Medicine
DX: E03.9 Hypothyroidism, unspecified (principal); K85.90 Acute pancreatitis without necrosis or infection, unspecified
CPT/HCPCS: 36415; 80053; 80061; 82150; 82330; 83690; 84439; 84443; 85025

== ENCOUNTER → 2022-09-26 | Outpatient (CLI) | payer MEDICARE ==
[2022-09-26 14:17] LABS: ALT 27 U/L (8-44); AST 27 U/L (13-35); African American GFR (CKD) 76.1 (60.0-200.0); Albumin 4.5 g/dL (3.8-4.9); Albumin/Globulin Ratio 1.58 (1.60-3.17); Alkaline Phosphatase 70 U/L (41-126); BUN/Creat Ratio 15.67 Ratio (12.00-20.00); Blood Urea Nitrogen 14.2 mg/dL (9.0-27.0); C Reactive Protein <0.30 mg/dL (0.00-0.80); Calcium 9.4 mg/dL (8.7-10.3); Carbon Dioxide 24.6 mmol/L (20.0-27.5); Chloride 101 mmol/L (96-109); Globulin 2.9 g/dL (1.6-3.3); Glucose 105 mg/dL (70-110); Non-African American GFR(CKD) 65.6 (60.0-200.0); Potassium 4.4 mmol/L (3.5-5.5); Sodium 139 mmol/L (135-145); Total Protein 7.3 g/dL (6.2-8.2)
[2022-09-26 14:23] LABS: Basophils # (A) 0.03 X 10*3/uL (0.00-0.10); Basophils % (A) 0.6 %; Eosinophils # (A) 0.09 X 10*3/uL (0.04-0.35); Eosinophils % (A) 1.8 %; HCT 42.6 % (37.2-46.3); HGB 13.8 g/dL (12.0-15.0); Immature Grans, Automated 0.2 %; Lymphocytes # (A) 1.51 X 10*3/uL (0.90-5.00); Lymphocytes % (A) 30.1 %; MCH 30.2 pg (27.0-32.0); MCHC 32.4 g/dL (32.0-37.0); MCV 93.2 fL (80.0-97.0); Mean Platelet Volume 10.3 fL (9.5-12.2); Monocytes # (A) 0.45 X 10*3/uL (0.20-1.00); NRBC Per 100 WBC 0 /100 WBCS (0.0-0.0); Neutrophils # (A) 2.93 X 10*3/uL (1.80-7.70); Neutrophils % (A) 58.3 %; Platelet Count 247 X 10*3/uL (140-440); RBC 4.57 X 10*6/uL (4.10-5.20); RDW 12.2 % (11.5-14.5); WBC 5.02 X 10*3/uL (4.50-10.00)
[2022-09-26 14:59] LABS: Erythrocyte Sedimentation Rate 12 mm/Hr (0-30)
== END | disposition home or self-care (01) ==
LOC: LABWHC1 07:32
PROVIDERS: ATTEND Internal Medicine
DX: E03.9 Hypothyroidism, unspecified (principal); R10.9 Unspecified abdominal pain
CPT/HCPCS: 36415; 80053; 84439; 84443; 85025; 85652; 86140

== ENCOUNTER → 2022-10-10 | Outpatient (CLI) | payer MEDICARE ==
--- NOTE | 2022-10-10 12:15 | XR ---
EXAMINATION TYPE: XR finger RT DATE OF EXAM: 10/10/2022 11:51 AM INDICATION: Patient age:Female; 67 years old; Reason for study: S61.219A Laceration w/o FB of unsp finger w/o shabana; PHH. COMPARISON: None TECHNIQUE: Frontal, lateral and oblique views of the right hand were obtained. FINDINGS: Normal alignment of the visualized joints. No acute osseous pathology is identified. No e vidence of soft tissue swelling. No radiopaque foreign body. IMPRESSION: 1. No acute osseous pathology. 2. No radiopaque foreign body.
== END | disposition home or self-care (01) ==
LOC: RADXRMAIN 11:31
PROVIDERS: ATTEND Internal Medicine
DX: S61.219A Laceration without foreign body of unspecified finger without damage to nail, initial encounter (principal)

== ENCOUNTER → 2023-05-22 | Outpatient (CLI) | payer MEDICARE ==
[2023-05-22 10:13] VITALS: BP 138/90; PULSE 69; RESP 17; TEMP 97.8
--- NOTE | 2023-05-22 11:18 | P.HPOB ---
History of Present Illness H&P Date: 05/22/23 Chief Complaint: The patient is here for her routine gynecologic exam and ma mmogram. This is a 67-year-old 023 with an LMP of 2002. The patient has a known cystocele which has been followed conservatively. She thinks it has gotten slightly larger and sometimes notices a bulge at the vaginal opening. She also experiences some immediate leakage with walking, coughing, or sneezing, a couple times each week. She occasionally notices some urge incontinence as well. She sometimes feels like she does not completely empty her bladder. She has occasionally will also notice some leakage immediately after voiding. She had noticed some hair loss and hot flashes within the past couple of years and tried using brpz-rwa-mikchay supplements which has helped with her symptoms. She is otherwise without gynecologic complaints. Review of Systems She is getting about 20 pounds over the past year. She denies respiratory, cardiac, or G.I. problems. Past Medical History Past Medical History: Asthma, COPD, Eye Disorder, Hyperlipidemia, Thyroid Disorder Additional Past Medical History / Comment(s): Hypothyroidism. Mesenteric panniculitis. Leg edema. Closed angle glaucoma. 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 History of Any Multi-Drug Resistant Organisms: None Reported Past Surgical History: Appendectomy, Breast Surgery, Tonsillectomy Additional Past Surgical History / Comment(s): Tonsillectomy age 58, breast biopsy 2004, exploratory laprarotomy with ovarian cystectomy and appendectomy 1972, D&C x3 1970, colonoscopy 2020 (next after 5yr). Fusion on neck 2010 Past Anesthesia/Blood Transfusion Reactions: Postoperative Nausea & Vomiting (PONV) Past Psychological History: No Psychological Hx Reported Smoking Status: Former smoker Past Alcohol Use History: Occasional (1 drink per month.) Additional Past Alcohol Use History / Comment(s): Quit smoking in 1997. Past Drug Use History: None Reported Additional History: She has been since 1994 and is sexually active. 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 - Past Family History Father Family Medical History: Cancer Additional Family Medical History / Comment(s): Bowel cancer. Mother Family Medical History: Dementia Additional Family Medical History / Comment(s): Maternal aunt had breast cancer. Medications and Allergies Home Medications Medication Instructions Recorded Confirmed Type Levothyroxine Sodium [Synthroid] 112 mcg PO DAILY 04/27/15 05/22/23 History Albuterol Inhaler [Ventolin Hfa 1 - 2 inhaler PO ONCE PRN 08/07/17 05/22/23 History Inhaler] Cholecalciferol [Vitamin D3 (25 5,000 unit PO DAILY 02/03/20 05/22/23 History Mcg = 1000 Iu)] Loratadine [Claritin] 10 mg PO DAILY 02/03/20 05/22/23 History Latanoprost Ophth [Xalatan 0.005%] 1 drops BOTH EYES HS 04/28/20 05/22/23 History Thera Tears 1 drop BOTH EYES DIRECTED 04/28/20 05/22/23 History Atorvastatin [Lipitor] 20 mg PO DAILY 05/16/22 05/22/23 History Fluticasone Propionate 110 Mcg 1 puff INHALATION DAILY 05/16/22 05/22/23 History [Flovent 110 Mcg Inhaler] Allergies Allergy/AdvReac Type Severity Reaction Status Date / Time erythromycin base Allergy Nausea & Verified 05/22/23 10:05 Vomiting Penicillins Allergy Swelling Verified 05/22/23 10:05 Exam Vital Signs Temp Pulse Resp BP Pulse Ox 05/22/23 10:05 97.8 F 69 17 138/90 97 Intake and Output 05/21/23 05/22/23 05/22/23 22:59 06:59 14:59 Other: Weight 96.162 kg Height 5 feet 2 inches, weight 212 pounds, BMI 38.8. This is a well-developed well-nourished white female who is alert and oriented times 3 in no acute distress. HEENT: Within normal limits. NECK: Supple without mass or thyromegaly. CHEST AND LUNGS: Clear to auscultation. HEART: Regular rate and rhythm. BREASTS: Are without mass or discharge. AXILLARY EXAM: Negative for adenopathy. BACK: Negative for CVA tenderness. ABDOMEN: Soft, nontender, without palpable masses. PELVIC EXAM: Normal external genitalia with mild atrophy. Cervix and vagina appear normal with mild atrophy. There is no unusual discharge. There is a grade 2 cystocele at rest. With Valsalva the cystocele increases to a grade 2-3 cystocele. No urinary leakage was demonstrated with cough or Valsalva. There was moderate urethral mobility with coughing. The uterus is midposition, nongravid size and nontender. There are no palpable adnexal masses or tenderness. RECTAL EXAM: Vaginal exam is negative for mass or tenderness and is negative for occult blood. There is good sphincter tone. EXTREMITIES: Nontender. IMPRESSION: 1. 67-year-old menopausal female with a grade 2-3 cystocele which is mildly symptomatic. 2. Mild stress urinary incontinence which may be related to the increasing cystocele. Mixed urinary incontinence. PLAN: 1. Pap smears have been discontinued. 2. Self breast awareness was discussed with the patient. We have also discussed symptoms associated with inflammatory breast cancer. 3. Screening mammogram was done today. 4. Osteoporosis prevention was discussed. She had a normal bone density test 1 year ago and we will plan on repeating this in 5 years after her last bone density test. 5. We have discussed her slightly increasing cystocele with urinary incontinence. She would like a referral to Dr. Schaffer, [id number] shellfish weigher, for evaluation. The referral will be made. 6. She was advised to return in one year for her annual well woman exam.
--- NOTE | 2023-05-23 15:44 | MM ---
Reason for Exam: Screening (asymptomatic). Last screening mammogram was performed 12 month(s) ago. Patient History: Menarche at age 12. First Full-Term at age 18. Postmenopausal. Progesterone for 4 months. Patient used Hormonal Contraceptives for 3 years. 1999, Cyst Aspiration on the Right side. 2000, Excisional Biopsy on the Left side. 04/05/2021, Benign Core Biopsy on the left side. 09/16/2001, Benign Stereotactic Core Biopsy on the right side. Maternal aunt had breast cancer, age 50. Risk Values: Candie 5 year model risk: 1.8%. NCI Lifetime model risk: 6.3%. Prior Study Comparison: 04/05/2021 Left Diagnostic Mammogram, [facility]. 10/06/2021 Left MG 3D diag mammo w/cad LT, [facility]. 05/16/2022 Bilateral MG 3D screening mammo w/cad, [facility]. Tissue Density: There are scattered fibroglandular densities. Findings: Analyzed By CAD. Appears symmetrical and stable. No significant interval change. A core marker is within the right breast. Minimal vascular calcifications present bilaterally. Core markers within the left breast. No suspicious groups of microcalcifications, spiculated or lobular masses, architectural distortion or other secondary signs of malignancy are mammographically apparent. Overall Assessment: Benign, BI-RAD 2 Management: Screening Mammogram of both breasts in 1 year. A negative mammogram report should not preclude additional follow up of suspicious palpable abnormalities. Patient should continue monthly self breast exam. A clinical breast exam by your physician is recommended on an annual basis and results should be correlated with mammographic findings. Electronically signed and approved by: Jorge Castro D.O. Radiologis
== END | disposition home or self-care (01) ==
LOC: RADMAMWWP 09:30
PROVIDERS: ATTEND Obstetrics & Gynecology
DX: Z12.31 Encounter for screening mammogram for malignant neoplasm of breast (principal); Z01.419 Encounter for gynecological examination (general) (routine) without abnormal findings; Z78.0 Asymptomatic menopausal state; Z80.3 Family history of malignant neoplasm of breast
CPT/HCPCS: 77063; 77067

== ENCOUNTER → 2024-05-20 | Outpatient (CLI) | payer MEDICARE ==
[2024-05-20 14:24] LABS: Partial Thromboplastin Time 24.7 sec (22.0-30.0); Prothrombin Time 10.6 sec (10.0-12.5)
[2024-05-20 19:15] LABS: ALT 28 U/L (8-44); AST 26 U/L (13-35); Albumin 4.4 g/dL (3.8-4.9); Albumin/Globulin Ratio 1.57 Ratio (1.60-3.17); Alkaline Phosphatase 63 U/L (41-126); BUN/Creat Ratio 12.36 Ratio (12.00-20.00); Blood Urea Nitrogen 13.6 mg/dL (9.0-27.0); Calcium 9.2 mg/dL (8.7-10.3); Carbon Dioxide 25.5 mmol/L (21.6-31.8); Chloride 105 mmol/L (96-109); Globulin 2.8 g/dL (1.6-3.3); Glucose 99 mg/dL (70-110); Potassium 4.2 mmol/L (3.5-5.5); Sodium 142 mmol/L (135-145); Total Bilirubin 0.7 mg/dL (0.3-1.2); Total Protein 7.2 g/dL (6.2-8.2)
[2024-05-20 20:03] LABS: HCT 46.1 % (37.2-46.3); HGB 14.4 g/dL (12.0-15.0); MCH 29.6 pg (27.0-32.0); MCHC 31.2 g/dL (32.0-37.0); MCV 94.9 FL (80.0-97.0); Mean Platelet Volume 10.4 FL (9.5-12.2); NRBC Per 100 WBC 0 X 10*3/uL (0.00-0.01); Platelet Count 263 X 10*3/uL (140-440); RBC 4.86 X 10*6/uL (4.10-5.20); RDW 12.5 % (11.5-14.5); WBC 6.16 X 10*3/uL (4.50-10.00)
== END | disposition home or self-care (01) ==
LOC: LABPAT 13:06
PROVIDERS: ATTEND Orthopaedic Surgery
DX: Z01.818 Encounter for other preprocedural examination (principal); Z22.322 Carrier or suspected carrier of Methicillin resistant Staphylococcus aureus; E11.9 Type 2 diabetes mellitus without complications; M17.11 Unilateral primary osteoarthritis, right knee
CPT/HCPCS: 80053; 83036; 85027; 85610; 85730; 87070; 93005

== ENCOUNTER → 2024-10-28 | Outpatient (CLI) | payer MEDICARE ==
[2024-10-28 15:49] VITALS: BP 122/87; PULSE 95; RESP 16; TEMP 98.3
--- NOTE | 2024-10-28 16:16 | P.HPOB ---
History of Present Illness H&P Date: 10/28/24 Chief Complaint: The patient is here for her routine gynecologic exam and ma mmogram. This is a 69-year-old -0-2-3 with an LMP of 2002. The patient continues to have urinary incontinence issues. She tends to have immediate leakage with coughing and sneezing, but can also have urge incontinence if she does not get to the bathroom quick enough. She was referred to see Dr. Schaffer, the urogynecologist. She had to cancel her appointment last year because of her knee problems. She called to make another appointment with him, but was told that Dr. Schaffer retired. She is otherwise without gynecologic complaints. Review of Systems She has lost 8 pounds over the past year and has done this through weight watchers. She denies respiratory or cardiac problems. GI: Occasional gastric reflux symptoms. Past Medical History Past Medical History: Asthma, Eye Disorder, Hyperlipidemia, Osteoarthritis (OA), Thyroid Disorder Additional Past Medical History / Comment(s): Hypothyroidism. hx. mesenteric panniculitis. Lt. Leg edema fro0m childhood injury. Closed angle glaucoma. 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 History of Any Multi-Drug Resistant Organisms: None Reported Past Surgical History: Appendectomy, Breast Surgery, Cholecystectomy, Joint Replacement, Tonsillectomy Additional Past Surgical History / Comment(s): Tonsillectomy age 58, breast biopsy 2004, exploratory laprarotomy with ovarian cystectomy and appendectomy 1972, D&C x3 1969, colonoscopy 2019. Fusion on neck 2010. Right knee replacement. Past Anesthesia/Blood Transfusion Reactions: Postoperative Nausea & Vomiting (PONV) Additional Past Anesthesia/Blood Transfusion Reaction / Comment(s): PONV several years ago, none recently Past Psychological History: No Psychological Hx Reported Smoking Status: Former smoker Past Alcohol Use History: Rare (1 drink per month.) Additional Past Alcohol Use History / Comment(s): Quit smoking in 1997. Past Drug Use History: None Reported Additional History: She has been since 1994 and is sexually active. 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 - Past Family History Father Family Medical History: Cancer Additional Family Medical History / Comment(s): Bowel cancer. Mother Family Medical History: Dementia Additional Family Medical History / Comment(s): Maternal aunt had breast cancer. Medications and Allergies Home Medications Medication Instructions Recorded Confirmed Type Levothyroxine Sodium [Synthroid] 112 mcg PO DAILY 04/27/15 06/18/24 History Albuterol Inhaler [Ventolin Hfa 1 - 2 inhaler PO Q6H PRN 08/07/17 06/18/24 History Inhaler] Loratadine [Claritin] 10 mg PO DAILY 02/03/20 06/18/24 History Latanoprost Ophth [Xalatan 0.005%] 1 drops BOTH EYES HS 04/28/20 06/18/24 History traMADol HCL 25 mg PO PRN 10/28/24 History Allergies Allergy/AdvReac Type Severity Reaction Status Date / Time erythromycin base Allergy Nausea & Verified 10/28/24 15:36 Vomiting Penicillins Allergy Swelling Verified 10/28/24 15:36 Exam Vital Signs Temp Pulse Resp BP Pulse Ox 10/28/24 15:44 98.3 F 95 16 122/87 96 Intake and Output 10/28/24 10/28/24 10/28/24 06:59 14:59 22:59 Other: Weight 92.533 kg Height 5 feet 2 inches, weight 204 pounds, BMI 37.3. This is a well-developed well-nourished white female who is alert and oriented times 3 in no acute distress. HEENT: Within normal limits. NECK: Supple without mass or thyromegaly. CHEST AND LUNGS: Clear to auscultation. HEART: Regular rate and rhythm. BREASTS: Are without mass or discharge. AXILLARY EXAM: Negative for adenopathy. BACK: Negative for CVA tenderness. ABDOMEN: Soft, nontender, without palpable masses. PELVIC EXAM: Normal external genitalia with mild atrophy. Cervix and vagina appear normal with mild atrophy. There is no unusual discharge. There is a grade 2 cystocele at rest and a grade 2 uterine prolapse. The cystocele increases and approaches the introitus with Valsalva. There is minimal rectocele. Vaginal mucosa overlying the cystocele is not thickened and there is no evidence of ulceration or excoriation. The uterus is midposition, nongravid size and nontender. There are no palpable adnexal masses or tenderness. RECTAL EXAM: Rectovaginal exam is negative for mass or tenderness and is negative for occult blood. EXTREMITIES: Nontender. IMPRESSION: 1. 69-year-old menopausal female with a grade 2-3 cystocele and grade 2 uterine prolapse. 2. Mixed urinary incontinence possibly related to the cystocele. PLAN: 1. Pap smears have been discontinued. 2. Self breast awareness was discussed with the patient. We have also discussed symptoms associated with inflammatory breast cancer. 3. Screening mammogram will be done today. 4. Osteoporosis prevention was discussed. I have stressed the importance of adequate calcium, vitamin D and regular exercise. Recommended amounts of calcium and vitamin D were also discussed. She had a normal bone density test on 06/13/2022. Will plan on repeating this in approximately 2027. 5. I have recommended see a urogynecologist regarding her prolapse and mixed urinary incontinence. She will again try to make an appointment at Dr. Schaffer's old office with one of his colleagues since Dr. Schaffer apparently has retired. She will call if she needs another referral. 6. I recommend trying to completely empty the bladder as much as possible, not by bearing down, but by giving herself more time and relaxing. I have also recommended regular Kegel exercises and this was explained to her. I have also recommended that she try negative Valsalva exercises and this was also explained to her. 7. She was advised to return in one year for her annual well woman exam and as needed.
--- NOTE | 2024-10-28 17:07 | MM ---
Reason for Exam: Screening (asymptomatic). Last mammogram was performed 1 year(s) and 5 month(s) ago. Patient History: Menarche at age 12. First Full-Term at age 18. Postmenopausal. Progesterone for 4 months. Patient used Hormonal Contraceptives for 3 years. 1999, Cyst Aspiration on the Right side. 2000, Excisional Biopsy on the Left side. 04/05/2021, Benign Core Biopsy on the left side. 09/16/2001, Benign Stereotactic Core Biopsy on the right side. Maternal aunt had breast cancer, age 50. Risk Values: Candie 5 year model risk: 1.9%. NCI Lifetime model risk: 5.7%. Prior Study Comparison: 10/06/2021 Left MG 3D diag mammo w/cad , [facility]. 05/16/2022 Bilateral MG 3D screening mammo w/cad, [facility]. 05/22/2023 Bilateral MG 3D screening mammo w/cad, [facility]. Tissue Density: There are scattered areas of fibroglandular density. Findings: Analyzed By CAD. Some fluctuating nodularity anterior left breast. Progressive popcorn calcification involving nodularity posterior upper-outer quadrant left breast suggesting a degenerating fibroadenoma. Unchanged fat necrosis calcification redemonstrated posterior right breast. There is no suspicious group of microcalcifications or new suspicious mass in either breast. Overall Assessment: Benign, BI-RAD 2 Management: Screening Mammogram of both breasts in 1 year. Patient should continue monthly self-breast exams. A clinical breast exam by your physician is recommended on an annual basis. This exam should not preclude additional follow-up of suspicious palpable abnormalities. Note on Candie scores and lifetime risk: 1. A Candie score greater than 3% is considered moderate risk. If this is the case, consider specialist referral to assess eligibility for a risk reducing agent. 2. If overall lifetime risk for the development of breast cancer is 20% or higher, the patient may qualify for future screening with alternating mammogram and breast MRI. [facility], , 10/28/2024 5:04 PM. Electronically signed and approved by: Keyon De La Rosa M.D. Radiologist
== END ==
LOC: WWCWWP 15:23
PROVIDERS: ATTEND Obstetrics & Gynecology
DX: Z01.419 Encounter for gynecological examination (general) (routine) without abnormal findings (principal); Z12.31 Encounter for screening mammogram for malignant neoplasm of breast; N39.46 Mixed incontinence; N81.10 Cystocele, unspecified; Z78.0 Asymptomatic menopausal state; Z87.891 Personal history of nicotine dependence; Z88.0 Allergy status to penicillin; Z88.1 Allergy status to other antibiotic agents
CPT/HCPCS: 77063; 77067